=== PATIENT | female | born 1995 | race Hispanic/Latino ===

== ENCOUNTER 2019-12-26 19:37 | Emergency (ER) | payer SELFPAY ==
[~2019-12-26] VITALS: Ht 157.5 cm; Wt 140.2 kg
--- OUTSIDE RECORDS SUMMARY | 2019-12-26 19:42 | XMS REPORT ---
[facility] Address Unknown Phone Unavailable Care Team Providers Care I&C Technician Name Role Phone Unavailable Unavailable Payers Payer Name Policy Type Policy Number Effective Date Expiration Date Problems This patient has no known problems. Allergies, Adverse Reactions, Alerts Allergy Name Allergy Type Status Severity Reaction(s) Onset Date Inactive Date Treating Clinician Comments No Known Allergies DA Active U 2019-12-13 00:00:00 No Known Allergies DA Active U 2019-01-12 00:00:00 No Known Allergies DA Active U 2018-11-03 00:00:00 No Known Allergies DA Active U 2018-10-12 00:00:00 No Known Allergies DA Active U 2018-10-06 00:00:00 No Known Allergies DA Active U 2012-07-04 00:00:00 Medications This patient has no known medications. Results Test Description Test Time Test Comments Text Results Atomic Results Result Comments - ABDOMEN LTD 2019-06-12 16:00:00 Name: WILLIAMS SPENCE [facility] : 1995 Age/S: 23 / F [address] [facility] Unit #: [id number] Loc: [place] [address] Phys: Rc Ware MD Acct: [id number] Dis Date: Status: REG ER PHONE #: [phone] Exam Date: 06/12/2019 1544 FAX #: [phone] Reason: RUQ pain EXAMS: CPT CODE: [id number] US ABDOMEN LTD 61917 HISTORY: Right upper quadrant pain. COMPARISON: None available. The liver is mildly hyperechogenic suggesting mild fibrofatty infiltration which slightly limited evaluation for intrahepatic mass however no discrete lesions. The liver is enlarged at 22 cm in length. No intra or extrahepatic biliary ductal dilatation. CBD is normal at 3.3 mm. Main portal vein is patent with hepatopedal flow and normal spectral waveform. Gallbladder demonstrating multiple shadowing stones. No pericholecystic fluid or wall thickening. No ascites. Right kidney is free from hydronephrosis and calyceal stones. Normal echogenicity and texture. Right kidney measured 12.7 cm in length. Visualized portions of the IVC, aorta and pancreas are normal however imaged incompletely. IMPRESSION: Contracted gallbladder with multiple gallstones without pericholecystic fluid along the anterior wall. No wall thickening. Fibrofatty infiltrated liver with hepatomegaly at 22 cm in length. at 1600 Reported and signed by: Chintan Luciano M.D. CC: Rc Ware MD Technologist: Alyssa Montanez RDMS Trnsdb Date/Time: 06/12/2019 (1600) [email or web address] Orig Print D/T: S: 06/12/2019 (2188) Probe: PAGE 1 Signed Report COMPREHENSIVE METABOLIC PANEL 2019-06-12 15:20:00 SODIUM (test code=NA) 139 mmol/L 135-148 POTASSIUM (test code=K) 3.3 mmol/L 3.5-5.1 CHLORIDE (test code=CL) 103 mmol/L 101-109 CARBON DIOXIDE (test code=CO2) 26.4 mmol/L 21-32 ANION GAP (test code=GAP) 13 mmol/L 10-20 GLUCOSE (test code=GLU) 82 mg/dL 74-106 BLOOD UREA NITROGEN (test code=BUN) 8 mg/dL 3-21 CREATININE (test code=CREAT) 0.49 mg/dL 0.55-1.3 BUN/CREATININE RATIO (test code=BUN/CREA) 16.3 10-20 TOTAL PROTEIN (test code=PROT) 7.6 g/dL 6.5-8.4 ALBUMIN (test code=ALB) 3.8 g/dL 3.4-4.8 GLOBULIN (test code=GLOB) 3.8 G/DL 1-10 ALBUMIN/GLOBULIN RATIO (test code=A/G) 1.0 RATIO 0.75-1.50 CALCIUM (test code=CA) 8.7 mg/dL 8.4-10.2 BILIRUBIN TOTAL (test code=BILT) 0.30 mg/dL 0.0-1.0 SGOT/AST (test code=AST) 8 U/L 6-32 SGPT/ALT (test code=ALT) 16 U/L 12-78 Note: Change in REFERENCE RANGE due to new reagent method. ALKALINE PHOSPHATASE TOTAL (test code=ALKP) 68 U/L 38-126 HEPATIC FUNCTION [id number] 15:20:00* Test Item Value Reference Range Comments BILIRUBIN DIRECT (test code=BILD) 0.10 mg/dL 0.0-0.30 [id number] 15:20:00* Test Item Value Reference Range Comments LIPASE (test code=LIP) 124 U/L 128-270 COMPREHENSIVE METABOLIC [id number] 15:14:00* Test Item Value Reference Range Comments SODIUM (test code=NA) 139 mmol/L 135-148 POTASSIUM (test code=K) 3.3 mmol/L 3.5-5.1 CHLORIDE (test code=CL) 103 mmol/L 101-109 CARBON DIOXIDE (test code=CO2) 26.4 mmol/L 21-32 ANION GAP (test code=GAP) 13 mmol/L 10-20 GLUCOSE (test code=GLU) 82 mg/dL 74-106 BLOOD UREA NITROGEN (test code=BUN) 8 mg/dL 3-21 CREATININE (test code=CREAT) 0.49 mg/dL 0.55-1.3 BUN/CREATININE RATIO (test code=BUN/CREA) 16.3 10-20 TOTAL PROTEIN (test code=PROT) gram/dL 6.4-8.2 ALBUMIN (test code=ALB) g/dL 3.4-5.0 GLOBULIN (test code=GLOB) g/dL 2.7-4.2 ALBUMIN/GLOBULIN RATIO (test code=A/G) 0.75-1.50 CALCIUM (test code=CA) 8.7 mg/dL 8.4-10.2 BILIRUBIN TOTAL (test code=BILT) mg/dL 0.2-1.2 SGOT/AST (test code=AST) IUnit/L 15-37 SGPT/ALT (test code=ALT) U/L 10-69 ALKALINE PHOSPHATASE TOTAL (test code=ALKP) IUnit/L 45-117 HEPATIC FUNCTION [id number] 15:14:00* Test Item Value Reference Range Comments BILIRUBIN DIRECT (test code=BILD) mg/dL 0.0-0.20 [id number] 15:14:00* Test Item Value Reference Range Comments LIPASE (test code=LIP) Unit/L 144-286 CBC W/AUTO [id number] 15:09:00* Test Item Value Reference Range Comments WHITE BLOOD CELL (test code=WBC) 8.3 K/mm3 4.5-12.5 RED BLOOD CELL (test code=RBC) 4.06 mill/mm3 3.7-5.2 HEMOGLOBIN (test code=HGB) 10.8 gram/dL 11.5-15.5 HEMATOCRIT (test code=HCT) 34.5 % 36.0-46.0 MEAN CELL VOLUME (test code=MCV) 85.0 fL 80-98 MEAN CELL HGB (test code=MCH) 26.6 picogram 27.0-33.0 MEAN CELL HGB CONCETRATION (test code=MCHC) 31.3 gram/dL 33.0-36.0 RED CELL DISTRIBUTION WIDTH (test code=RDW) 15.2 % 11.6-16.2 RED CELL DISTRIBUTION WIDTH SD (test code=RDW-SD) 47.9 fL 37.0-51.0 PLATELET COUNT (test code=PLT) 319 K/mm3 150-450 MEAN PLATELET VOLUME (test code=MPV) 8.9 fL 6.7-11.0 NEUTROPHIL % (test code=NT%) 66.2 % 39.0-69.0 LYMPHOCYTE % (test code=LY%) 24.9 % 25.0-55.0 MONOCYTE % (test code=MO%) 6.4 % 0.0-10.0 EOSINOPHIL % (test code=EO%) 2.2 % 0.0-5.0 BASOPHIL % (test code=BA%) 0.2 % 0.0-1.0 NEUTROPHIL # (test code=NT#) 5.47 K/mm3 1.8-7.7 LYMPHOCYTE # (test code=LY#) 2.06 K/mm3 1.0-5.0 MONOCYTE # (test code=MO#) 0.53 K/mm3 0-0.8 EOSINOPHIL # (test code=EO#) 0.18 K/mm3 0.0-0.5 BASOPHIL # (test code=BA#) 0.02 K/mm3 0.0-0.2 MANUAL DIFF REQUIRED (test code=MDIFF) NO UR HCG [id number] 15:09:00* Test Item Value Reference Range Comments UR HCG QUAL (test code=HCGQLU) NEGATIVE This HCGQL test is NOT applicable for MALE patients.Check with nurse about probable order error.If Tumor Marker Test needed, nurse should order test "HCGTU"(Test #550.55048) URINALYSIS [id number] 20:50:00* Test Item Value Reference Range Comments UA COLOR (test code=COLU) YELLOW YELLOW UA APPEARANCE (test code=APPU) CLEAR CLEAR UA GLUCOSE DIPSTICK (test code=DGLUU) norm mg/dL NEGATIVE UA BILIRUBIN DIPSTICK (test code=BILU) NEGATIVE mg/dL NEGATIVE UA KETONE DIPSTICK (test code=KETU) neg mg/dL NEGATIVE UA SPECIFIC GRAVITY (test code=SGU) 1.015 1.001-1.035 UA BLOOD DIPSTICK (test code=SANG) neg Abiel/uL NEGATIVE UA PH DIPSTICK (test code=MARCOS) 5.0 5.0-8.0 UA PROTEIN DIPSTICK (test code=PROU) neg mg/dL Neg-15 UA UROBILINIOGEN DIPSTICK (test code=URO) norm mg/dL 0.0-0.2 UA NITRITE DIPSTICK (test code=POPPY) NEGATIVE NEGATIVE UA LEUKOCYTE ESTERASE DIPSTICK (test code=LEUU) 25 Katlin/uL (Trace) uL NEGATIVE UA WBC (test code=WBCU) 0-5 per HPF 0-5 UA RBC (test code=RBCU) NONE SEEN per HPF 0-5 UA EPITHELIAL CELLS (test code=EPIU) Few (2-5/hpf) per HPF Few UA BACTERIA (test code=BACU) FEW per HPF NONE Urine Source? Clean CatchBASIC METABOLIC [id number] 20:23:00* Test Item Value Reference Range Comments SODIUM (test code=NA) 141 mmol/L 136-145 POTASSIUM (test code=K) 3.7 mmol/L 3.5-5.1 CHLORIDE (test code=CL) 105 mmol/L 101-109 CARBON DIOXIDE (test code=CO2) 26.5 mmol/L 21-32 ANION GAP (test code=GAP) 13 mmol/L 10-20 GLUCOSE (test code=GLU) 98 mg/dL 74-106 BLOOD UREA NITROGEN (test code=BUN) 13 mg/dL 3-21 GLOMERULAR FILTRATION RATE (test code=GFR) > 60 mL/min >=60 Estimated GFR by using Modified MDRD formula.Chronic kidney disease is defined as either kidney damageor GFR <60 mL/min/1.73 m2 for >3 months. CREATININE (test code=CREAT) 0.53 mg/dL 0.55-1.3 BUN/CREATININE RATIO (test code=BUN/CREA) 24.5 10-20 CALCIUM (test code=CA) 8.6 mg/dL 8.4-10.2 HEPATIC FUNCTION [id number] 20:23:00* Test Item Value Reference Range Comments TOTAL PROTEIN (test code=PROT) 7.4 g/dL 6.5-8.4 ALBUMIN (test code=ALB) 3.5 g/dL 3.4-4.8 GLOBULIN (test code=GLOB) 3.9 G/DL 1-10 ALBUMIN/GLOBULIN RATIO (test code=A/G) 0.90 RATIO 0.75-1.50 BILIRUBIN TOTAL (test code=BILT) 0.20 mg/dL 0.0-1.0 BILIRUBIN DIRECT (test code=BILD) 0.10 mg/dL 0.0-0.30 SGOT/AST (test code=AST) 15 U/L 6-32 SGPT/ALT (test code=ALT) 35 U/L 12-78 Note: Change in REFERENCE RANGE due to new reagent method. ALKALINE PHOSPHATASE TOTAL (test code=ALKP) 68 U/L 38-126 [id number] 20:23:00* Test Item Value Reference Range Comments LIPASE (test code=LIP) 151 U/L 128-270 HCG SERUM [id number] 20:23:00* Test Item Value Reference Range Comments HCG SERUM QUAL (test code=HCGQL) NEGATIVE BASIC METABOLIC [id number] 20:23:00* Test Item Value Reference Range Comments SODIUM (test code=NA) 141 mmol/L 136-145 POTASSIUM (test code=K) 3.7 mmol/L 3.5-5.1 CHLORIDE (test code=CL) 105 mmol/L 101-109 CARBON DIOXIDE (test code=CO2) 26.5 mmol/L 21-32 ANION GAP (test code=GAP) 13 mmol/L 10-20 GLUCOSE (test code=GLU) 98 mg/dL 74-106 BLOOD UREA NITROGEN (test code=BUN) 13 mg/dL 3-21 GLOMERULAR FILTRATION RATE (test code=GFR) > 60 mL/min >=60 Estimated GFR by using Modified MDRD formula.Chronic kidney disease is defined as either kidney damageor GFR <60 mL/min/1.73 m2 for >3 months. CREATININE (test code=CREAT) 0.53 mg/dL 0.55-1.3 BUN/CREATININE RATIO (test code=BUN/CREA) 24.5 10-20 CALCIUM (test code=CA) 8.6 mg/dL 8.4-10.2 HEPATIC FUNCTION [id number] 20:23:00* Test Item Value Reference Range Comments TOTAL PROTEIN (test code=PROT) 7.4 g/dL 6.5-8.4 ALBUMIN (test code=ALB) 3.5 g/dL 3.4-4.8 GLOBULIN (test code=GLOB) 3.9 G/DL 1-10 ALBUMIN/GLOBULIN RATIO (test code=A/G) 0.90 RATIO 0.75-1.50 BILIRUBIN TOTAL (test code=BILT) 0.20 mg/dL 0.0-1.0 BILIRUBIN DIRECT (test code=BILD) 0.10 mg/dL 0.0-0.30 SGOT/AST (test code=AST) 15 U/L 6-32 SGPT/ALT (test code=ALT) 35 U/L 12-78 Note: Change in REFERENCE RANGE due to new reagent method. ALKALINE PHOSPHATASE TOTAL (test code=ALKP) 68 U/L 38-126 [id number] 20:23:00* Test Item Value Reference Range Comments LIPASE (test code=LIP) 151 U/L 128-270 HCG SERUM [id number] 20:23:00* Test Item Value Reference Range Comments HCG SERUM QUAL (test code=HCGQL) NEGATIVE NEGATIVE This HCGQL test is NOT applicable for MALE patients.Check with nurse about probable order error.If Tumor Marker Test needed, nurse should order test "HCGTU"(Test #550.69491) CBC W/O [id number] 20:13:00* Test Item Value Reference Range Comments WHITE BLOOD CELL (test code=WBC) 8.7 K/mm3 4.5-12.5 RED BLOOD CELL (test code=RBC) 4.05 mill/mm3 3.7-5.2 HEMOGLOBIN (test code=HGB) 10.9 gram/dL 11.5-15.5 HEMATOCRIT (test code=HCT) 34.4 % 36.0-46.0 MEAN CELL VOLUME (test code=MCV) 84.9 fL 80-98 MEAN CELL HGB (test code=MCH) 26.9 picogram 27.0-33.0 MEAN CELL HGB CONCETRATION (test code=MCHC) 31.7 gram/dL 33.0-36.0 RED CELL DISTRIBUTION WIDTH (test code=RDW) 14.9 % 11.6-16.2 RED CELL DISTRIBUTION WIDTH SD (test code=RDW-SD) 47.0 fL 37.0-51.0 PLATELET COUNT (test code=PLT) 322 K/mm3 150-450 MEAN PLATELET VOLUME (test code=MPV) 8.6 fL 6.7-11.0 - US ABDOMEN [id number] 19:25:00 Name: WILLIAMS SPENCE [facility]: 1995 Age/S: 23 / F [address] [facility] Unit #: [id number] Loc: [place] [address] Phys: Janie Larios DO Acct: [id number] Dis Date: Status: REG ER PHONE #: [phone] Exam Date: 05/27/2019 1917 FAX #: [phone] Reason: Abdominal Pain EXAMS: CPT CODE: [id number] US ABDOMEN LTD 81290 REASON FOR EXAM: Abdominal Pain EXAM ORDER DATE: 05/27/2019 6:24 PM Attending Ernesto: Janie Larios DO PROCEDURE: - US ABDOMEN LTD FINDINGS: The liver is unremarkable. There is no evidence of focal mass identified. The pancreas is within normal limits. The right kidney measures 13.1 x 4.2 cm. There is no evidence of hydronephrosis. There is no evidence of nephrolithiasis. There is no evidence of renal mass. The gallbladder is contracted and full of gallstones. The common bile duct measures 0.4 cm. There is no evidence of ascites. The aorta and IVC are within normal limits. The portal vein is patent with hepatopetal flow IMPRESSION: Contracted gallbladder full of gallstones at 192 Reported and signed by: Daren Angel M.D. CC: Janie Larios DO Technologist: Alyssa Montanez RDMS Trnscb Date/Time: 05/27/2019 (1924) Padmini Orig Print D/T: S: 05/27/2019 (1927) Probe: PAGE 1 Signed Report COMPREHENSIVE METABOLIC [id number] 09:00:00* Test Item Value Reference Range Comments SODIUM (test code=NA) 141 mmol/L 135-148 POTASSIUM (test code=K) 3.7 mmol/L 3.5-5.1 CHLORIDE (test code=CL) 103 mmol/L 101-109 CARBON DIOXIDE (test code=CO2) 27.4 mmol/L 21-32 ANION GAP (test code=GAP) 14 mmol/L 10-20 GLUCOSE (test code=GLU) 111 mg/dL 74-106 BLOOD UREA NITROGEN (test code=BUN) 9 mg/dL 3-21 CREATININE (test code=CREAT) 0.61 mg/dL 0.55-1.3 BUN/CREATININE RATIO (test code=BUN/CREA) 14.8 10-20 TOTAL PROTEIN (test code=PROT) 7.9 g/dL 6.5-8.4 ALBUMIN (test code=ALB) 3.8 g/dL 3.4-4.8 GLOBULIN (test code=GLOB) 4.1 G/DL 1-10 ALBUMIN/GLOBULIN RATIO (test code=A/G) 0.9 RATIO 0.75-1.50 CALCIUM (test code=CA) 9.1 mg/dL 8.4-10.2 BILIRUBIN TOTAL (test code=BILT) 0.30 mg/dL 0.0-1.0 SGOT/AST (test code=AST) 8 U/L 6-32 SGPT/ALT (test code=ALT) 19 U/L 12-78 Note: Change in REFERENCE RANGE due to new reagent method. ALKALINE PHOSPHATASE TOTAL (test code=ALKP) 77 U/L 38-126 [id number] 09:00:00* Test Item Value Reference Range Comments LIPASE (test code=LIP) 136 U/L 128-270 COMPREHENSIVE METABOLIC [id number] 08:54:00* Test Item Value Reference Range Comments SODIUM (test code=NA) 141 mmol/L 135-148 POTASSIUM (test code=K) 3.7 mmol/L 3.5-5.1 CHLORIDE (test code=CL) 103 mmol/L 101-109 CARBON DIOXIDE (test code=CO2) 27.4 mmol/L 21-32 ANION GAP (test code=GAP) 14 mmol/L 10-20 GLUCOSE (test code=GLU) 111 mg/dL 74-106 BLOOD UREA NITROGEN (test code=BUN) 9 mg/dL 3-21 CREATININE (test code=CREAT) 0.61 mg/dL 0.55-1.3 BUN/CREATININE RATIO (test code=BUN/CREA) 14.8 10-20 TOTAL PROTEIN (test code=PROT) gram/dL 6.4-8.2 ALBUMIN (test code=ALB) g/dL 3.4-5.0 GLOBULIN (test code=GLOB) g/dL 2.7-4.2 ALBUMIN/GLOBULIN RATIO (test code=A/G) 0.75-1.50 CALCIUM (test code=CA) 9.1 mg/dL 8.4-10.2 BILIRUBIN TOTAL (test code=BILT) mg/dL 0.2-1.2 SGOT/AST (test code=AST) IUnit/L 15-37 SGPT/ALT (test code=ALT) U/L 10-69 ALKALINE PHOSPHATASE TOTAL (test code=ALKP) IUnit/L 45-117 [id number] 08:54:00* Test Item Value Reference Range Comments LIPASE (test code=LIP) Unit/L 144-286 CBC W/AUTO [id number] 08:26:00* Test Item Value Reference Range Comments WHITE BLOOD CELL (test code=WBC) 6.5 K/mm3 4.5-12.5 RED BLOOD CELL (test code=RBC) 4.31 mill/mm3 3.7-5.2 HEMOGLOBIN (test code=HGB) 11.4 gram/dL 11.5-15.5 HEMATOCRIT (test code=HCT) 36.4 % 36.0-46.0 MEAN CELL VOLUME (test code=MCV) 84.5 fL 80-98 MEAN CELL HGB (test code=MCH) 26.5 picogram 27.0-33.0 MEAN CELL HGB CONCETRATION (test code=MCHC) 31.3 gram/dL 33.0-36.0 RED CELL DISTRIBUTION WIDTH (test code=RDW) 15.3 % 11.6-16.2 RED CELL DISTRIBUTION WIDTH SD (test code=RDW-SD) 48.0 fL 37.0-51.0 PLATELET COUNT (test code=PLT) 308 K/mm3 150-450 MEAN PLATELET VOLUME (test code=MPV) 8.4 fL 6.7-11.0 NEUTROPHIL % (test code=NT%) 76.1 % 39.0-69.0 LYMPHOCYTE % (test code=LY%) 18.2 % 25.0-55.0 MONOCYTE % (test code=MO%) 5.0 % 0.0-10.0 EOSINOPHIL % (test code=EO%) 0.5 % 0.0-5.0 BASOPHIL % (test code=BA%) 0.2 % 0.0-1.0 NEUTROPHIL # (test code=NT#) 4.98 K/mm3 1.8-7.7 LYMPHOCYTE # (test code=LY#) 1.19 K/mm3 1.0-5.0 MONOCYTE # (test code=MO#) 0.33 K/mm3 0-0.8 EOSINOPHIL # (test code=EO#) 0.03 K/mm3 0.0-0.5 BASOPHIL # (test code=BA#) 0.01 K/mm3 0.0-0.2 MANUAL DIFF REQUIRED (test code=MDIFF) NO URINALYSIS [id number] 07:58:00* Test Item Value Reference Range Comments UA COLOR (test code=COLU) STRAW YELLOW UA APPEARANCE (test code=APPU) SLIGHT HAZY CLEAR UA GLUCOSE DIPSTICK (test code=DGLUU) norm mg/dL NEGATIVE UA BILIRUBIN DIPSTICK (test code=BILU) NEGATIVE mg/dL NEGATIVE UA KETONE DIPSTICK (test code=KETU) neg mg/dL NEGATIVE UA SPECIFIC GRAVITY (test code=SGU) 1.010 1.001-1.035 UA BLOOD DIPSTICK (test code=SANG) neg Abiel/uL NEGATIVE UA PH DIPSTICK (test code=MARCOS) 8.0 5.0-8.0 UA PROTEIN DIPSTICK (test code=PROU) neg mg/dL Neg-15 UA UROBILINIOGEN DIPSTICK (test code=URO) norm mg/dL 0.0-0.2 UA NITRITE DIPSTICK (test code=POPPY) NEGATIVE NEGATIVE UA LEUKOCYTE ESTERASE DIPSTICK (test code=LEUU) 25 Katlin/uL (Trace) uL NEGATIVE UA WBC (test code=WBCU) 0-5 per HPF 0-5 UA RBC (test code=RBCU) 0-3 per HPF 0-5 UA EPITHELIAL CELLS (test code=EPIU) Few (2-5/hpf) per HPF Few UA BACTERIA (test code=BACU) FEW per HPF NONE Urine Source? Clean CatchUR HCG [id number] 07:58:00* Test Item Value Reference Range Comments UR HCG QUAL (test code=HCGQLU) NEGATIVE This HCGQL test is NOT applicable for MALE patients.Check with nurse about probable order error.If Tumor Marker Test needed, nurse should order test "HCGTU"(Test #550.77613) Urine Source? Clean CatchURINALYSIS [id number] 07:44:00* Test Item Value Reference Range Comments UA COLOR (test code=COLU) STRAW YELLOW UA APPEARANCE (test code=APPU) SLIGHT HAZY CLEAR UA GLUCOSE DIPSTICK (test code=DGLUU) norm mg/dL NEGATIVE UA BILIRUBIN DIPSTICK (test code=BILU) NEGATIVE mg/dL NEGATIVE UA KETONE DIPSTICK (test code=KETU) neg mg/dL NEGATIVE UA SPECIFIC GRAVITY (test code=SGU) 1.010 1.001-1.035 UA BLOOD DIPSTICK (test code=SANG) neg Abiel/uL NEGATIVE UA PH DIPSTICK (test code=MARCOS) 8.0 5.0-8.0 UA PROTEIN DIPSTICK (test code=PROU) neg mg/dL Neg-15 UA UROBILINIOGEN DIPSTICK (test code=URO) norm mg/dL 0.0-0.2 UA NITRITE DIPSTICK (test code=POPPY) NEGATIVE NEGATIVE UA LEUKOCYTE ESTERASE DIPSTICK (test code=LEUU) 25 Katlin/uL (Trace) uL NEGATIVE UA WBC (test code=WBCU) per HPF 0-5 UA RBC (test code=RBCU) per HPF 0-5 UA EPITHELIAL CELLS (test code=EPIU) per HPF Few UA BACTERIA (test code=BACU) per HPF NONE Urine Source? Clean CatchUR HCG [id number] 07:44:00* Test Item Value Reference Range Comments UR HCG QUAL (test code=HCGQLU) Urine Source? Clean Catch- US ABDOMEN [id number] 23:05:00 Name: SPENCEMESFINPRASANNA [facility] : 1995 Age/S: 23 / F [address] [facility] Unit #: [id number] Loc: [place] [address] Phys: Victorino Lemus MD Acct: [id number] Di s Date: Status: REG ER PHONE #: [phone] Exam Date: 05/12/20192245 FAX #: Reason: RUQ PAIN EXAMS: CPT CODE: [id number] US ABDOMEN LTD 91851 REASON FOR EXAM: RUQ PAIN EXAM ORDER DATE: 05/12/2019 10:06 PM Attendi aura العلي.: Lianne Lemus MD PROCEDURE: - US ABDOMEN LTD Technique: Grayscale images of the Pancreas, liver, right kidney, comm on bile duct, and gallbladder. Grayscale and color Doppler images of the aorta, IVC, and portal vein. Comparison: CT of the chest which inc ludes the upper abdomen January 19, 2019 FINDINGS: Aorta and IVC: Patent and grossly normal in caliber. Liver: Size: 22.0 cm craniocaudally Parenchyma and contour: Geographic areas of increased echogenicity Cysts and/or masses: None. Intrahe patic bile ducts: No intrahepatic biliary ductal dilation Common b ile duct: 0.4 cm in diameter. No echogenic filling defects in visualized duct. Gallbladder: Evaluation is limited due to contracted state o f the gallbladder Stones/sludge: Intraluminal echogenicities with po sterior acoustic shadowing likely representing stones and/or sludge Wall: 3.0 mm in thickness. No discontinuity. No polyps. No pericholecys tic fluid. No hyperemia. Sonographic Meyers's sign: Negative Portal vein: Portal vein caliber is within normal limits. Portal vein is patent with hepatopetal flow. Pancreas: Incompletely visualized. However the visualized portions are grossly within normal limits. Right kidney: PAGE 1 Signed Report (CONTINUED) Name: WILLIAMS SPENCE [facility] : 1995 Age/S: 23 / F [address] [facility] Unit #: [id number] Loc: [place] [address] Phys: Lianne Lemus MD Acct: [id number] Dis Date: Status: REG ER PHONE #: [phone] Exam Date: 05/12/20196 FAX #: [phone] Reason: RUQ PAIN EXAMS: CPT CODE: [id number] US ABDOMEN LTD 00244 <Continued > size: 12.8 x 4.6 x 7.8 cm. stones: none cysts/masses: none hydronephrosis: none There is no evidence of ascites. IMPRESSION: Limited evaluation of the gallbladder due to contraction. There are intraluminal echogenicities with posterior s hadowing likely representing stones and/or sludge Hepatomegaly w ith geographic areas of steatosis. at 2305 Reported and signed by: Gerard Mauricio MD CC: Technologist: Himanshu Disla RDMS Trnscb Date/Time: 05/12/2019 (2304) [email or web address] Orig Print D/T: S: 05/12/2019 ([id number]) Probe: PAGE 2 Signed Report BASIC METABOLIC PANEL 2019-05-12 22:32:00* Test Item Value Reference Range Comments SODIUM (test code=NA) 141 mmol/L 136-145 POTASSIUM (test code=K) 3.9 mmol/L 3.5-5.1 CHLORIDE (test code=CL) 103 mmol/L 101-109 CARBON DIOXIDE (test code=CO2) 28.1 mmol/L 21-32 ANION GAP (test code=GAP) 14 mmol/L 10-20 GLUCOSE (test code=GLU) 99 mg/dL 74-106 BLOOD UREA NITROGEN (test code=BUN) 17 mg/dL 3-21 GLOMERULAR FILTRATION RATE (test code=GFR) > 60 mL/min >=60 Estimated GFR by using Modified MDRD formula.Chronic kidney disease is defined as either kidney damageor GFR <60 mL/min/1.73 m2 for >3 months. CREATININE (test code=CREAT) 0.73 mg/dL 0.55-1.3 BUN/CREATININE RATIO (test code=BUN/CREA) 23.3 10-20 CALCIUM (test code=CA) 8.5 mg/dL 8.4-10.2 HEPATIC FUNCTION [id number] 22:32:00* Test Item Value Reference Range Comments TOTAL PROTEIN (test code=PROT) 7.5 g/dL 6.5-8.4 ALBUMIN (test code=ALB) 3.5 g/dL 3.4-4.8 GLOBULIN (test code=GLOB) 4.0 G/DL 1-10 ALBUMIN/GLOBULIN RATIO (test code=A/G) 0.88 RATIO 0.75-1.50 BILIRUBIN TOTAL (test code=BILT) 0.20 mg/dL 0.0-1.0 BILIRUBIN DIRECT (test code=BILD) 0.10 mg/dL 0.0-0.30 SGOT/AST (test code=AST) 8 U/L 6-32 SGPT/ALT (test code=ALT) 19 U/L 12-78 Note: Change in REFERENCE RANGE due to new reagent method. ALKALINE PHOSPHATASE TOTAL (test code=ALKP) 68 U/L 38-126 [id number] 22:32:00* Test Item Value Reference Range Comments LIPASE (test code=LIP) 186 U/L 128-270 HCG SERUM [id number] 22:32:00* Test Item Value Reference Range Comments HCG SERUM QUAL (test code=HCGQL) NEGATIVE NEGATIVE This HCGQL test is NOT applicable for MALE patients.Check with nurse about probable order error.If Tumor Marker Test needed, nurse should order test "HCGTU"(Test #[id number]) URINALYSIS [id number] 22:29:00* Test Item Value Reference Range Comments UA COLOR (test code=COLU) YELLOW YELLOW UA APPEARANCE (test code=APPU) CLOUDY CLEAR UA GLUCOSE DIPSTICK (test code=DGLUU) norm mg/dL NEGATIVE UA BILIRUBIN DIPSTICK (test code=BILU) NEGATIVE mg/dL NEGATIVE UA KETONE DIPSTICK (test code=KETU) neg mg/dL NEGATIVE UA SPECIFIC GRAVITY (test code=SGU) 1.025 1.001-1.035 UA BLOOD DIPSTICK (test code=SANG) 250 (4+) Abiel/uL NEGATIVE UA PH DIPSTICK (test code=MARCOS) 5.0 5.0-8.0 UA PROTEIN DIPSTICK (test code=PROU) 30 (1+) mg/dL Neg-15 UA UROBILINIOGEN DIPSTICK (test code=URO) 1 mg/dL 0.0-0.2 UA NITRITE DIPSTICK (test code=POPPY) NEGATIVE NEGATIVE UA LEUKOCYTE ESTERASE DIPSTICK (test code=LEUU) 100 [place]/uL (1+) uL NEGATIVE UA WBC (test code=WBCU) 0-5 per HPF 0-5 UA RBC (test code=RBCU) 50-100 per HPF 0-5 UA EPITHELIAL CELLS (test code=EPIU) Moderate (5-10/hpf) per HPF Few UA BACTERIA (test code=BACU) MODERATE per HPF NONE Urine Source? Clean CatchDRUGS OF ABUSE SCREEN [id number] 22:29:00* Test Item Value Reference Range Comments URN COCAINE (test code=COCAURN) NEGATIVE NEGATIVE URN CANNABINOIDS (test code=CANNABURN) POSITIVE NEGATIVE URN AMPHETAMINE (test code=AMPHETURN) POSITIVE NEGATIVE URN BARBITURATE (test code=BARBITURN) NEGATIVE NEGATIVE URN BENZODIAZEPINE (test code=BENZOURN) NEGATIVE NEGATIVE URN OPIATES (test code=OPIATURN) NEGATIVE NEGATIVE URN PHENCYCLIDINE (PCP) (test code=PHENCURN) NEGATIVE NEGATIVE Urine Source? Clean CatchBASIC METABOLIC [id number] 22:28:00* Test Item Value Reference Range Comments SODIUM (test code=NA) mmol/L 135-148 POTASSIUM (test code=K) mmol/L 3.5-5.1 CHLORIDE (test code=CL) mmol/L 101-109 CARBON DIOXIDE (test code=CO2) mmol/L 21-32 ANION GAP (test code=GAP) mmol/L 10-20 GLUCOSE (test code=GLU) mg/dL 74-106 BLOOD UREA NITROGEN (test code=BUN) mg/dL 3-21 GLOMERULAR FILTRATION RATE (test code=GFR) mL/min >=60 CREATININE (test code=CREAT) mg/dL 0.55-1.3 BUN/CREATININE RATIO (test code=BUN/CREA) 10-20 CALCIUM (test code=CA) mg/dL 8.4-10.2 HEPATIC FUNCTION [id number] 22:28:00* Test Item Value Reference Range Comments TOTAL PROTEIN (test code=PROT) gram/dL 6.4-8.2 ALBUMIN (test code=ALB) g/dL 3.4-5.0 GLOBULIN (test code=GLOB) g/dL 2.7-4.2 ALBUMIN/GLOBULIN RATIO (test code=A/G) 0.75-1.50 BILIRUBIN TOTAL (test code=BILT) mg/dL 0.2-1.2 BILIRUBIN DIRECT (test code=BILD) mg/dL 0.0-0.20 SGOT/AST (test code=AST) IUnit/L 15-37 SGPT/ALT (test code=ALT) U/L 10-69 ALKALINE PHOSPHATASE TOTAL (test code=ALKP) IUnit/L 45-117 [id number] 22:28:00* Test Item Value Reference Range Comments LIPASE (test code=LIP) Unit/L 144-286 HCG SERUM [id number] 22:28:00* Test Item Value Reference Range Comments HCG SERUM QUAL (test code=HCGQL) NEGATIVE NEGATIVE This HCGQL test is NOT applicable for MALE patients.Check with nurse about probable order error.If Tumor Marker Test needed, nurse should order test "HCGTU"(Test #550.85872) BASIC METABOLIC [id number] 22:28:00* Test Item Value Reference Range Comments SODIUM (test code=NA) 141 mmol/L 136-145 POTASSIUM (test code=K) 3.9 mmol/L 3.5-5.1 CHLORIDE (test code=CL) 103 mmol/L 101-109 CARBON DIOXIDE (test code=CO2) 28.1 mmol/L 21-32 ANION GAP (test code=GAP) 14 mmol/L 10-20 GLUCOSE (test code=GLU) 99 mg/dL 74-106 BLOOD UREA NITROGEN (test code=BUN) 17 mg/dL 3-21 GLOMERULAR FILTRATION RATE (test code=GFR) > 60 mL/min >=60 Estimated GFR by using Modified MDRD formula.Chronic kidney disease is defined as either kidney damageor GFR <60 mL/min/1.73 m2 for >3 months. CREATININE (test code=CREAT) 0.73 mg/dL 0.55-1.3 BUN/CREATININE RATIO (test code=BUN/CREA) 23.3 10-20 CALCIUM (test code=CA) 8.5 mg/dL 8.4-10.2 HEPATIC FUNCTION [id number] 22:28:00* Test Item Value Reference Range Comments TOTAL PROTEIN (test code=PROT) gram/dL 6.4-8.2 ALBUMIN (test code=ALB) g/dL 3.4-5.0 GLOBULIN (test code=GLOB) g/dL 2.7-4.2 ALBUMIN/GLOBULIN RATIO (test code=A/G) 0.75-1.50 BILIRUBIN TOTAL (test code=BILT) mg/dL 0.2-1.2 BILIRUBIN DIRECT (test code=BILD) mg/dL 0.0-0.20 SGOT/AST (test code=AST) IUnit/L 15-37 SGPT/ALT (test code=ALT) U/L 10-69 ALKALINE PHOSPHATASE TOTAL (test code=ALKP) IUnit/L 45-117 [id number] 22:28:00* Test Item Value Reference Range Comments LIPASE (test code=LIP) Unit/L 144-286 HCG SERUM [id number] 22:28:00* Test Item Value Reference Range Comments HCG SERUM QUAL (test code=HCGQL) NEGATIVE NEGATIVE This HCGQL test is NOT applicable for MALE patients.Check with nurse about probable order error.If Tumor Marker Test needed, nurse should order test "HCGTU"(Test #550.81948) URINALYSIS [id number] 22:27:00* Test Item Value Reference Range Comments UA COLOR (test code=COLU) YELLOW YELLOW UA APPEARANCE (test code=APPU) CLOUDY CLEAR UA GLUCOSE DIPSTICK (test code=DGLUU) norm mg/dL NEGATIVE UA BILIRUBIN DIPSTICK (test code=BILU) NEGATIVE mg/dL NEGATIVE UA KETONE DIPSTICK (test code=KETU) neg mg/dL NEGATIVE UA SPECIFIC GRAVITY (test code=SGU) 1.025 1.001-1.035 UA BLOOD DIPSTICK (test code=SANG) 250 (4+) Abiel/uL NEGATIVE UA PH DIPSTICK (test code=MARCOS) 5.0 5.0-8.0 UA PROTEIN DIPSTICK (test code=PROU) 30 (1+) mg/dL Neg-15 UA UROBILINIOGEN DIPSTICK (test code=URO) 1 mg/dL 0.0-0.2 UA NITRITE DIPSTICK (test code=POPPY) NEGATIVE NEGATIVE UA LEUKOCYTE ESTERASE DIPSTICK (test code=LEUU) 100 [place]/uL (1+) uL NEGATIVE UA WBC (test code=WBCU) 0-5 per HPF 0-5 UA RBC (test code=RBCU) 50-100 per HPF 0-5 UA EPITHELIAL CELLS (test code=EPIU) Moderate (5-10/hpf) per HPF Few UA BACTERIA (test code=BACU) MODERATE per HPF NONE Urine Source? Clean CatchDRUGS OF ABUSE SCREEN [id number] 22:27:00* Test Item Value Reference Range Comments URN COCAINE (test code=COCAURN) NEGATIVE URN CANNABINOIDS (test code=CANNABURN) NEGATIVE URN AMPHETAMINE (test code=AMPHETURN) NEGATIVE URN BARBITURATE (test code=BARBITURN) NEGATIVE URN BENZODIAZEPINE (test code=BENZOURN) NEGATIVE URN OPIATES (test code=OPIATURN) NEGATIVE URN PHENCYCLIDINE (PCP) (test code=PHENCURN) NEGATIVE Urine Source? Clean CatchCBC W/O [id number] 22:22:00* Test Item Value Reference Range Comments WHITE BLOOD CELL (test code=WBC) 9.5 K/mm3 4.5-12.5 RED BLOOD CELL (test code=RBC) 4.11 mill/mm3 3.7-5.2 HEMOGLOBIN (test code=HGB) 11.2 gram/dL 11.5-15.5 HEMATOCRIT (test code=HCT) 35.3 % 36.0-46.0 MEAN CELL VOLUME (test code=MCV) 85.9 fL 80-98 MEAN CELL HGB (test code=MCH) 27.3 picogram 27.0-33.0 MEAN CELL HGB CONCETRATION (test code=MCHC) 31.7 gram/dL 33.0-36.0 RED CELL DISTRIBUTION WIDTH (test code=RDW) 15.7 % 11.6-16.2 RED CELL DISTRIBUTION WIDTH SD (test code=RDW-SD) 49.9 fL 37.0-51.0 PLATELET COUNT (test code=PLT) 376 K/mm3 150-450 MEAN PLATELET VOLUME (test code=MPV) 8.5 fL 6.7-11.0 URINALYSIS [id number] 22:21:00* Test Item Value Reference Range Comments UA COLOR (test code=COLU) YELLOW YELLOW UA APPEARANCE (test code=APPU) CLOUDY CLEAR UA GLUCOSE DIPSTICK (test code=DGLUU) norm mg/dL NEGATIVE UA BILIRUBIN DIPSTICK (test code=BILU) NEGATIVE mg/dL NEGATIVE UA KETONE DIPSTICK (test code=KETU) neg mg/dL NEGATIVE UA SPECIFIC GRAVITY (test code=SGU) 1.025 1.001-1.035 UA BLOOD DIPSTICK (test code=SANG) 250 (4+) Abiel/uL NEGATIVE UA PH DIPSTICK (test code=MARCOS) 5.0 5.0-8.0 UA PROTEIN DIPSTICK (test code=PROU) 30 (1+) mg/dL Neg-15 UA UROBILINIOGEN DIPSTICK (test code=URO) 1 mg/dL 0.0-0.2 UA NITRITE DIPSTICK (test code=POPPY) NEGATIVE NEGATIVE UA LEUKOCYTE ESTERASE DIPSTICK (test code=LEUU) 100 [place]/uL (1+) uL NEGATIVE UA WBC (test code=WBCU) per HPF 0-5 UA RBC (test code=RBCU) per HPF 0-5 UA EPITHELIAL CELLS (test code=EPIU) per HPF Few UA BACTERIA (test code=BACU) per HPF NONE Urine Source? Clean CatchDRUGS OF ABUSE SCREEN [id number] 22:21:00* Test Item Value Reference Range Comments URN COCAINE (test code=COCAURN) NEGATIVE URN CANNABINOIDS (test code=CANNABURN) NEGATIVE URN AMPHETAMINE (test code=AMPHETURN) NEGATIVE URN BARBITURATE (test code=BARBITURN) NEGATIVE URN BENZODIAZEPINE (test code=BENZOURN) NEGATIVE URN OPIATES (test code=OPIATURN) NEGATIVE URN PHENCYCLIDINE (PCP) (test code=PHENCURN) NEGATIVE Urine Source? Clean CatchURINALYSIS [id number] 03:22:00* Test Item Value Reference Range Comments UA COLOR (test code=COLU) STRAW YELLOW UA APPEARANCE (test code=APPU) CLEAR CLEAR UA GLUCOSE DIPSTICK (test code=DGLUU) NEGATIVE mg/dL NEGATIVE UA BILIRUBIN DIPSTICK (test code=BILU) NEGATIVE mg/dL NEGATIVE UA KETONE DIPSTICK (test code=KETU) 5 (Trace) mg/dL NEGATIVE UA SPECIFIC GRAVITY (test code=SGU) 1.006 1.001-1.035 UA BLOOD DIPSTICK (test code=SANG) Negative mg/dL NEGATIVE UA PH DIPSTICK (test code=MARCOS) 6.0 5.0-8.0 UA PROTEIN DIPSTICK (test code=PROU) NEGATIVE mg/dL NEGATIVE UA UROBILINIOGEN DIPSTICK (test code=URO) NEGATIVE mg/dL NEGATIVE UA NITRITE DIPSTICK (test code=POPPY) NEGATIVE NEGATIVE UA LEUKOCYTE ESTERASE W REFLEX (test code=LEUUR) TRACE [place]/uL NEGATIVE UA WBC (test code=WBCU) 0-5 per HPF 0-5 UA RBC (test code=RBCU) NONE SEEN #/HPF 0-5 UA EPITHELIAL CELLS (test code=EPIU) None seen per HPF FEW UA BACTERIA (test code=BACU) FEW #/HPF NONE UA MUCUS (test code=MUCU) FEW #/LPF FEW Urine Source? Clean CatchBASIC METABOLIC [id number] 01:49:00* Test Item Value Reference Range Comments SODIUM (test code=NA) 142 mmol/L 136-145 POTASSIUM (test code=K) 4.2 mmol/L 3.5-5.1 CHLORIDE (test code=CL) 112.0 mmol/L 98-107 CARBON DIOXIDE (test code=CO2) 23.0 mmol/L 21-32 ANION GAP (test code=GAP) 11.2 10-20 GLUCOSE (test code=GLU) 85 mg/dL 74-106 BLOOD UREA NITROGEN (test code=BUN) 9 mg/dL 7-18 GLOMERULAR FILTRATION RATE (test code=GFR) > 60 mL/min >=60 Estimated GFR by using Modified MDRD formula.Chronic kidney disease is defined as either kidney damageor GFR <60 mL/min/1.73 m2 for >3 months. CREATININE (test code=CREAT) 0.50 mg/dL 0.55-1.02 Note change in reference range due to change in reagent. BUN/CREATININE RATIO (test code=BUN/CREA) 18.0 10-20 CALCIUM (test code=CA) 9.1 mg/dL 8.5-10.1 HEPATIC FUNCTION [id number] 01:49:00* Test Item Value Reference Range Comments TOTAL PROTEIN (test code=PROT) 7.8 gram/dL 6.4-8.2 ALBUMIN (test code=ALB) 3.8 g/dL 3.4-5.0 GLOBULIN (test code=GLOB) 4.0 gram/dL 2.7-4.2 ALBUMIN/GLOBULIN RATIO (test code=A/G) 1.0 0.75-1.50 BILIRUBIN TOTAL (test code=BILT) 0.30 mg/dL 0.0-1.0 BILIRUBIN DIRECT (test code=BILD) 0.09 mg/dL 0.0-0.20 SGOT/AST (test code=AST) 14 IUnit/L 15-37 SGPT/ALT (test code=ALT) 20 IUnit/L 12-78 ALKALINE PHOSPHATASE TOTAL (test code=ALKP) 59 IUnit/L 45-117 Note change in reference range due to change in reagent. [id number] 01:49:00* Test Item Value Reference Range Comments LIPASE (test code=LIP) 122 U/L 73.0-393.0 HCG SERUM [id number] 01:49:00* Test Item Value Reference Range Comments HCG SERUM QUAL (test code=HCGQL) NEGATIVE NEGATIVE This HCGQL test is NOT applicable for MALE patients.Check with nurse about probable order error.If Tumor Marker Test needed, nurse should order test "HCGTU"(Test #550.52962) BASIC METABOLIC [id number] 01:45:00* Test Item Value Reference Range Comments SODIUM (test code=NA) 142 mmol/L 136-145 POTASSIUM (test code=K) 4.2 mmol/L 3.5-5.1 CHLORIDE (test code=CL) 112.0 mmol/L 98-107 CARBON DIOXIDE (test code=CO2) 23.0 mmol/L 21-32 ANION GAP (test code=GAP) 11.2 10-20 GLUCOSE (test code=GLU) 85 mg/dL 74-106 BLOOD UREA NITROGEN (test code=BUN) 9 mg/dL 7-18 GLOMERULAR FILTRATION RATE (test code=GFR) > 60 mL/min >=60 Estimated GFR by using Modified MDRD formula.Chronic kidney disease is defined as either kidney damageor GFR <60 mL/min/1.73 m2 for >3 months. CREATININE (test code=CREAT) 0.50 mg/dL 0.55-1.02 Note change in reference range due to change in reagent. BUN/CREATININE RATIO (test code=BUN/CREA) 18.0 10-20 CALCIUM (test code=CA) 9.1 mg/dL 8.5-10.1 HEPATIC FUNCTION [id number] 01:45:00* Test Item Value Reference Range Comments TOTAL PROTEIN (test code=PROT) 7.8 gram/dL 6.4-8.2 ALBUMIN (test code=ALB) 3.8 g/dL 3.4-5.0 GLOBULIN (test code=GLOB) 4.0 gram/dL 2.7-4.2 ALBUMIN/GLOBULIN RATIO (test code=A/G) 1.0 0.75-1.50 BILIRUBIN TOTAL (test code=BILT) 0.30 mg/dL 0.0-1.0 BILIRUBIN DIRECT (test code=BILD) 0.09 mg/dL 0.0-0.20 SGOT/AST (test code=AST) 14 IUnit/L 15-37 SGPT/ALT (test code=ALT) 20 IUnit/L 12-78 ALKALINE PHOSPHATASE TOTAL (test code=ALKP) 59 IUnit/L 45-117 Note change in reference range due to change in reagent. [id number] 01:45:00* Test Item Value Reference Range Comments LIPASE (test code=LIP) 122 U/L 73.0-393.0 HCG SERUM [id number] 01:45:00* Test Item Value Reference Range Comments HCG SERUM QUAL (test code=HCGQL) NEGATIVE CBC W/O [id number] 01:43:00* Test Item Value Reference Range Comments WHITE BLOOD CELL (test code=WBC) 6.8 K/mm3 4.5-12.5 RED BLOOD CELL (test code=RBC) 4.16 mill/mm3 3.7-5.2 HEMOGLOBIN (test code=HGB) 11.3 gram/dL 11.5-15.5 HEMATOCRIT (test code=HCT) 36.7 % 36.0-46.0 MEAN CELL VOLUME (test code=MCV) 88.2 fL 80-98 MEAN CELL HGB (test code=MCH) 27.2 picogram 27.0-33.0 MEAN CELL HGB CONCETRATION (test code=MCHC) 30.8 gram/dL 33.0-36.0 RED CELL DISTRIBUTION WIDTH (test code=RDW) 16.5 % 11.6-16.2 PLATELET COUNT (test code=PLT) 280 K/mm3 150-450 MEAN PLATELET VOLUME (test code=MPV) 9.1 fL 6.7-11.0 BASIC METABOLIC [id number] 01:40:00* Test Item Value Reference Range Comments SODIUM (test code=NA) 142 mmol/L 136-145 POTASSIUM (test code=K) 4.2 mmol/L 3.5-5.1 CHLORIDE (test code=CL) 112.0 mmol/L 98-107 CARBON DIOXIDE (test code=CO2) mmol/L 21-32 ANION GAP (test code=GAP) 10-20 GLUCOSE (test code=GLU) mg/dL 74-106 BLOOD UREA NITROGEN (test code=BUN) mg/dL 7-18 GLOMERULAR FILTRATION RATE (test code=GFR) mL/min >=60 CREATININE (test code=CREAT) mg/dL 0.55-1.02 BUN/CREATININE RATIO (test code=BUN/CREA) 10-20 CALCIUM (test code=CA) mg/dL 8.5-10.1 HEPATIC FUNCTION [id number] 01:40:00* Test Item Value Reference Range Comments TOTAL PROTEIN (test code=PROT) gram/dL 6.4-8.2 ALBUMIN (test code=ALB) g/dL 3.4-5.0 GLOBULIN (test code=GLOB) gram/dL 2.7-4.2 ALBUMIN/GLOBULIN RATIO (test code=A/G) 0.75-1.50 BILIRUBIN TOTAL (test code=BILT) mg/dL 0.0-1.0 BILIRUBIN DIRECT (test code=BILD) mg/dL 0.0-0.20 SGOT/AST (test code=AST) IUnit/L 15-37 SGPT/ALT (test code=ALT) IUnit/L 12-78 ALKALINE PHOSPHATASE TOTAL (test code=ALKP) IUnit/L 45-117 [id number] 01:40:00* Test Item Value Reference Range Comments LIPASE (test code=LIP) U/L 73.0-393.0 HCG SERUM [id number] 01:40:00* Test Item Value Reference Range Comments HCG SERUM QUAL (test code=HCGQL) NEGATIVE CBC W/O [id number] 01:35:00* Test Item Value Reference Range Comments WHITE BLOOD CELL (test code=WBC) K/mm3 4.5-12.5 RED BLOOD CELL (test code=RBC) mill/mm3 3.7-5.2 HEMOGLOBIN (test code=HGB) gram/dL 11.5-15.5 HEMATOCRIT (test code=HCT) 36.7 % 36.0-46.0 MEAN CELL VOLUME (test code=MCV) fL 80-98 MEAN CELL HGB (test code=MCH) picogram 27.0-33.0 MEAN CELL HGB CONCETRATION (test code=MCHC) gram/dL 33.0-36.0 RED CELL DISTRIBUTION WIDTH (test code=RDW) % 11.6-16.2 PLATELET COUNT (test code=PLT) K/mm3 150-450 MEAN PLATELET VOLUME (test code=MPV) fL 6.7-11.0 BASIC METABOLIC [id number] 05:44:00* Test Item Value Reference Range Comments SODIUM (test code=NA) 139 mmol/L 136-145 POTASSIUM (test code=K) 3.0 mmol/L 3.5-5.1 CHLORIDE (test code=CL) 106.0 mmol/L 98-107 CARBON DIOXIDE (test code=CO2) 24.0 mmol/L 21-32 ANION GAP (test code=GAP) 12.0 10-20 GLUCOSE (test code=GLU) 88 mg/dL 74-106 BLOOD UREA NITROGEN (test code=BUN) 7 mg/dL 7-18 GLOMERULAR FILTRATION RATE (test code=GFR) > 60 mL/min >=60 Estimated GFR by using Modified MDRD formula.Chronic kidney disease is defined as either kidney damageor GFR <60 mL/min/1.73 m2 for >3 months. CREATININE (test code=CREAT) 0.40 mg/dL 0.55-1.02 Note change in reference range due to change in reagent. BUN/CREATININE RATIO (test code=BUN/CREA) 17.5 10-20 CALCIUM (test code=CA) 8.0 mg/dL 8.5-10.1 CBC W/AUTO [id number] 05:32:00* Test Item Value Reference Range Comments WHITE BLOOD CELL (test code=WBC) 10.7 K/mm3 4.5-12.5 RED BLOOD CELL (test code=RBC) 3.80 mill/mm3 3.7-5.2 HEMOGLOBIN (test code=HGB) 9.7 gram/dL 11.5-15.5 HEMATOCRIT (test code=HCT) 32.1 % 36.0-46.0 MEAN CELL VOLUME (test code=MCV) 84.5 fL 80-98 MEAN CELL HGB (test code=MCH) 25.5 picogram 27.0-33.0 MEAN CELL HGB CONCETRATION (test code=MCHC) 30.2 gram/dL 33.0-36.0 RED CELL DISTRIBUTION WIDTH (test code=RDW) 15.9 % 11.6-16.2 RED CELL DISTRIBUTION WIDTH SD (test code=RDW-SD) 48.9 fL 37.0-51.0 PLATELET COUNT (test code=PLT) 338 K/mm3 150-450 MEAN PLATELET VOLUME (test code=MPV) 9.1 fL 6.7-11.0 NEUTROPHIL % (test code=NT%) 70.4 % 39.0-69.0 IMMATURE GRANULOCYTE % (test code=IG%) 0.7 % 0.0-5.0 LYMPHOCYTE % (test code=LY%) 20.8 % 25.0-55.0 MONOCYTE % (test code=MO%) 7.2 % 0.0-10.0 EOSINOPHIL % (test code=EO%) 0.6 % 0.0-5.0 BASOPHIL % (test code=BA%) 0.3 % 0.0-1.0 NUCLEATED RBC % (test code=NRBC%) 0.0 % 0-0 NEUTROPHIL # (test code=NT#) 7.53 K/mm3 1.8-7.7 IMMATURE GRANULOCYTE # (test code=IG#) 0.08 x10 3/uL 0-0.03 LYMPHOCYTE # (test code=LY#) 2.22 K/mm3 1.0-5.0 MONOCYTE # (test code=MO#) 0.77 K/mm3 0-0.8 EOSINOPHIL # (test code=EO#) 0.06 K/mm3 0.0-0.5 BASOPHIL # (test code=BA#) 0.03 K/mm3 0.0-0.2 NUCLEATED RBC # (test code=NRBC#) 0.00 K/mm3 0.0-0.1 MANUAL DIFF REQUIRED (test code=MDIFF) NO - CT ABDOMEN [id number] 12:53:00 Name: WILLIAMS SPENCE [facility] : 1995 Age/S: 23 / F [address] [facility] Unit #: [id number] Loc: JuanJB [address] Phys: Sydnie Ramirez MD Acct: [id number] Dis Date: Status: ADM IN PHONE #: [phone] Exam Date: 01/19/2019 1201 FAX #: [phone] Reason: perforation EXAMS: CPT CODE: [id number] CT ABDOMEN W/CONT 40083 HISTORY: PE. COMPARISON: None available. CTA CHEST: 3-D images NOT available. 100 mL of Isovue-370. Automated exposure control. No pulmonary embolism suboptimally opacified aorta is limited for dissection without gross dissection or aneurysm. Well- opacified SVC. Nondiagnostic visualized neck vasculature due to poor opacification. Unremarkable incompletely visualized thyroid glands. Esophageal wall is not thickened. No pathologic adenopathy. Cardiomegaly without pericardial effusion mild tricuspid regurgitation. Subcutaneous tissues and musculature are normal in appearance. No lytic or blastic lesions are noted within the bony skeleton. The lungs are clear of infiltrates or congestion. Trace basilar effusions, greater on the right. Mild mosaic pattern with suggest small airway disease. No bronchiectasis, honeycombing or fibrosis or endobronchial. Dependent changes. IMPRESSION: No pulmonary embolism. Distal branches slightly limited due to poor resolution due to thick cuts. Unremarkable aorta without aneurysm. Slightly limited for dissection due to suboptimal contrast bolus. The lungs are clear small bibasal effusions and dependent changes. No pathologic adenopathy. CT abdomen with contrast: COMPARISON: CT scan from October 12, 2018 and October 23, 2018. The liver is enhancing homogeneously. No discrete mass. Liver is m easuring 26 cm in length and is markedly enlarged. Portal vein is patent . Hepatic artery remains patent. Gallbladder is well-distended and witho ut radiopaque stones. Unremarkable spleen. Accessory spleen. H omogeneous enhancement. Stomach distended incompletely however it is nor mal in appearance. PAGE 1 Signed Report (CONTINUED) Name: WILLIAMS SPENCE [facility] : 1995 Age/S: 23 / F [address] [facility] Unit #: [id number] Loc: [place] [address] Phys: Sydnie Ramirez MD Acct: [id number] Dis Date: Status: ADM IN PHONE #: [phone] Exam Date: 01/19/2019 1201 FAX #: [phone] Reason: perforation EXAMS: CPT CODE: [id number] CT ABDOMEN W/CONT 02207 < Continued> Pancreas is enhancing homogeneously. Bilateral adrenals are within normal limits. Retroperitoneal lymph node measured 3.3 cm posterior to the right adrenal and medial to the upper pole of the right kidney is stable from September 2018 demonstrating 1 1/2 year stability. Well-opacified abdominal vasculature. No bowel obstruction or colitis or diverticulitis or enteritis. Study is limited due to technique and patient's large body habitus. Nonspecific inflammation in the lower pelvis could represent sequela of sigmoid diverticulitis however it is difficult to assess as the pelvis is not included. Additional pelvic CT would be of value for further characterization. Subcutaneous tissues and the musculature are normal in appearance. No lytic or blastic lesions are noted within bony skeleton. Mild sclerosis of the left SI joint is nonspecific finding IMPRESSION: Inflammatory changes in the far distal pelvis likely sequela sigmoid diverticulitis although it is incompletely included as pelvis is not included limiting evaluation. Correlate with CT pelvis for evaluation of diverticulitis of the sigmoid colon. Rest of the colon and small bowel are unremarkable. Appendix is not visible Severe hepatomegaly is unchanged at 26 cm in length. Stable right retroperitoneal lymph node posterior to the right adrenal measuring 3.3 cm ascending 1 1/2 year stability. at 1253 Reported and signed by: Chintan Luciano M.D. CC: Sydnie Ramirez MD; Ricardo Smith MD Technologist:Jewel Hernandez RT(R),(MR),(CT); CTDI: DLP: Trnscb Date/Time: 01/19/2019 (9053) t.[email or web address].[email or web address] Orig Print D/T: S: 01/19/2019 (7474) CTDI: DLP: PAGE 2 Signed Report - CTA [id number] 12:53:00 Name: WILLIAMS SPENCE [facility] : 1995 Age/S: 23 / F [address] [facility] Unit #: [id number] Loc: [facility] [place] [address] Phys: Sydnie Ramirez MD Acct: [id number] Dis Date: Status: ADM IN PHONE #: [phone] Exam Date: 01/19/2019 1201 FAX #: [phone] Reason: r/o PE EXAMS: CPT CODE: [id number] CTA CHEST 32462 HISTORY: PE. COMPARISON: None available. CTA CHEST: 3-D images NOT available. 100 mL of Isovue- 370. Automated exposure control. No pulmonary embolism suboptimally opacified aorta is limited for dissection without gross dissection or aneurysm. Well-opacified SVC. Nondiagnostic visualized neck vasculature due to poor opacification. Unremarkable incompletely visualized thyroid glands. Esophageal wall is not thickened. No pathologic adenopathy. Cardiomegaly without pericardial effusion mild tricuspid regurgitation. Subcutaneous tissues and musculature are normal in appearance. No lytic or blastic lesions are noted within the bony skele ton. The lungs are clear of infiltrates or congestion. Trace basil ar effusions, greater on the right. Mild mosaic pattern with suggest small airway disease. No bronchiectasis, honeycombing or fibrosis or endo bronchial. Dependent changes. IMPRESSION: No p ulmonary embolism. Distal branches slightly limited due to poor resoluti on due to thick cuts. Unremarkable aorta without aneurysm. Slightly limi aleah for dissection due to suboptimal contrast bolus. The lungs are clear small bibasal effusions and dependent changes. No pathologic adenopathy. CT abdomen with contrast: COMPARISON: CT scan from October 12, 2018 and October 23, 2018. The liver is enhancing homogeneously. No discrete mass. Liver is m easuring 26 cm in length and is markedly enlarged. Portal vein is patent . Hepatic artery remains patent. Gallbladder is well-distended and witho ut radiopaque stones. Unremarkable spleen. Accessory spleen. H omogeneous enhancement. Stomach distended incompletely however it is nor mal in appearance. PAGE 1 Signed Report (CONTINUED) Name: [facility] : 1995 Age/S: 23 / F [address] [facility] Unit #: [id number] Loc: [place] [address] Phys: Sydnie Ramirez MD Acct: [id number] Dis Date: Status: ADM IN PHONE #: [phone] Exam Date: 01/19/2019 1201 FAX #: [phone] Reason: r/o PE EXAMS: CPT CODE: [id number] CTA CHEST 77068 < Continued> Pancreas is enhancing homogeneously. Bilateral adrenals are within normal limits. Retroperitoneal lymph node measured 3.3 cm posterior to the right adrenal and medial to the upper pole of the right kidney is stable from September 2018 demonstrating 1 1/2 year stability. Well-opacified abdominal vasculature. No bowel obstruction or colitis or diverticulitis or enteritis. Study is limited due to technique and patient's large body habitus. Nonspecific inflammation in the lower pelvis could represent sequela of sigmoid diverticulitis however it is difficult to assess as the pelvis is not included. Additional pelvic CT would be of value for further characterization. Subcutaneous tissues and the musculature are normal in appearance. No lytic or blastic lesions are noted within bony skeleton. Mild sclerosis of the left SI joint is nonspecific finding IMPRESSION: Inflammatory changes in the far distal pelvis likely sequela sigmoid diverticulitis although it is incompletely included as pelvis is not included limiting evaluation. Correlate with CT pelvis for evaluation of diverticulitis of the sigmoid colon. Rest of the colon and small bowel are unremarkable. Appendix is not visible Severe hepatomegaly is unchanged at 26 cm in length. Stable right retroperitoneal lymph node posterior to the right adrenal measuring 3.3 cm ascending 1 1/2 year stability. at 1253 Reported and signed by: Chintan Luciano M.D. CC: Sydnie Ramirez MD; Ricardo Smith MD Technologist:Jewel Hernandez RT(R),(MR),(CT); CTDI: DLP: Trnscb Date/Time: 01/19/2019 (6894) [email or web address] Orig Print D/T: S: 01/19/2019 (9128) CTDI: DLP: PAGE 2 Signed Report THYROID STIMULATING [id number] 10:38:00* Test Item Value Reference Range Comments THYROID STIMULATING HORMONE (test code=TSH) 2.280 uIU/mL 0.36-3.74 TSH REFERENCE RANGES: EUTHYROID: 0.35 - 4.3 mIU/mL HYPO : > 5.5 mIU/mL HYPER : < 0.35 mIU/mL SPECIMEN COMMENTS: ADD TO LABSBASIC METABOLIC [id number] 03:23:00* Test Item Value Reference Range Comments SODIUM (test code=NA) 144 mmol/L 136-145 POTASSIUM (test code=K) 3.7 mmol/L 3.5-5.1 CHLORIDE (test code=CL) 112.0 mmol/L 98-107 CARBON DIOXIDE (test code=CO2) 19.0 mmol/L 21-32 ANION GAP (test code=GAP) 16.7 10-20 GLUCOSE (test code=GLU) 79 mg/dL 74-106 BLOOD UREA NITROGEN (test code=BUN) 9 mg/dL 7-18 GLOMERULAR FILTRATION RATE (test code=GFR) > 60 mL/min >=60 Estimated GFR by using Modified MDRD formula.Chronic kidney disease is defined as either kidney damageor GFR <60 mL/min/1.73 m2 for >3 months. CREATININE (test code=CREAT) 0.30 mg/dL 0.55-1.02 Note change in reference range due to change in reagent. BUN/CREATININE RATIO (test code=BUN/CREA) 30.0 10-20 CALCIUM (test code=CA) 8.3 mg/dL 8.5-10.1 BASIC METABOLIC [id number] 03:16:00* Test Item Value Reference Range Comments SODIUM (test code=NA) 144 mmol/L 136-145 POTASSIUM (test code=K) 3.7 mmol/L 3.5-5.1 CHLORIDE (test code=CL) 112.0 mmol/L 98-107 CARBON DIOXIDE (test code=CO2) mmol/L 21-32 ANION GAP (test code=GAP) 10-20 GLUCOSE (test code=GLU) mg/dL 74-106 BLOOD UREA NITROGEN (test code=BUN) mg/dL 7-18 GLOMERULAR FILTRATION RATE (test code=GFR) mL/min >=60 CREATININE (test code=CREAT) mg/dL 0.55-1.02 BUN/CREATININE RATIO (test code=BUN/CREA) 10-20 CALCIUM (test code=CA) 8.3 mg/dL 8.5-10.1 [id number] 03:15:00* Test Item Value Reference Range Comments TROPONIN-I (test code=TROPI) <0.015 ng/mL 0-0.045 [id number] 03:15:00* Test Item Value Reference Range Comments CKMB (test code=CKMBT) < 1.0 ng/mL 0-6.0 CBC W/O [id number] 02:36:00* Test Item Value Reference Range Comments WHITE BLOOD CELL (test code=WBC) 9.3 K/mm3 4.5-12.5 RED BLOOD CELL (test code=RBC) 3.76 mill/mm3 3.7-5.2 HEMOGLOBIN (test code=HGB) 9.7 gram/dL 11.5-15.5 HEMATOCRIT (test code=HCT) 31.5 % 36.0-46.0 MEAN CELL VOLUME (test code=MCV) 83.8 fL 80-98 MEAN CELL HGB (test code=MCH) 25.8 picogram 27.0-33.0 MEAN CELL HGB CONCETRATION (test code=MCHC) 30.8 gram/dL 33.0-36.0 RED CELL DISTRIBUTION WIDTH (test code=RDW) 16.1 % 11.6-16.2 PLATELET COUNT (test code=PLT) 304 K/mm3 150-450 MEAN PLATELET VOLUME (test code=MPV) 9.5 fL 6.7-11.0 COMPREHENSIVE METABOLIC [id number] 07:13:00* Test Item Value Reference Range Comments SODIUM (test code=NA) 142 mmol/L 136-145 POTASSIUM (test code=K) 3.7 mmol/L 3.5-5.1 CHLORIDE (test code=CL) 109.0 mmol/L 98-107 CARBON DIOXIDE (test code=CO2) 23.0 mmol/L 21-32 ANION GAP (test code=GAP) 13.7 10-20 GLUCOSE (test code=GLU) 79 mg/dL 74-106 BLOOD UREA NITROGEN (test code=BUN) 8 mg/dL 7-18 GLOMERULAR FILTRATION RATE (test code=GFR) > 60 mL/min >=60 Estimated GFR by using Modified MDRD formula.Chronic kidney disease is defined as either kidney damageor GFR <60 mL/min/1.73 m2 for >3 months. CREATININE (test code=CREAT) 0.40 mg/dL 0.55-1.02 Note change in reference range due to change in reagent. BUN/CREATININE RATIO (test code=BUN/CREA) 20.0 10-20 TOTAL PROTEIN (test code=PROT) 6.9 gram/dL 6.4-8.2 ALBUMIN (test code=ALB) 2.8 g/dL 3.4-5.0 GLOBULIN (test code=GLOB) 4.1 gram/dL 2.7-4.2 ALBUMIN/GLOBULIN RATIO (test code=A/G) 0.7 0.75-1.50 CALCIUM (test code=CA) 8.8 mg/dL 8.5-10.1 BILIRUBIN TOTAL (test code=BILT) 0.20 mg/dL 0.0-1.0 SGOT/AST (test code=AST) 13 IUnit/L 15-37 SGPT/ALT (test code=ALT) 14 IUnit/L 12-78 ALKALINE PHOSPHATASE TOTAL (test code=ALKP) 67 IUnit/L 45-117 Note change in reference range due to change in reagent. CBC W/O [id number] 06:55:00* Test Item Value Reference Range Comments WHITE BLOOD CELL (test code=WBC) 9.1 K/mm3 4.5-12.5 RED BLOOD CELL (test code=RBC) 3.99 mill/mm3 3.7-5.2 HEMOGLOBIN (test code=HGB) 10.0 gram/dL 11.5-15.5 HEMATOCRIT (test code=HCT) 34.5 % 36.0-46.0 MEAN CELL VOLUME (test code=MCV) 86.5 fL 80-98 MEAN CELL HGB (test code=MCH) 25.1 picogram 27.0-33.0 MEAN CELL HGB CONCETRATION (test code=MCHC) 29.0 gram/dL 33.0-36.0 RED CELL DISTRIBUTION WIDTH (test code=RDW) 15.9 % 11.6-16.2 PLATELET COUNT (test code=PLT) 339 K/mm3 150-450 MEAN PLATELET VOLUME (test code=MPV) 9.0 fL 6.7-11.0 BASIC METABOLIC [id number] 06:57:00* Test Item Value Reference Range Comments SODIUM (test code=NA) 141 mmol/L 136-145 POTASSIUM (test code=K) 3.6 mmol/L 3.5-5.1 CHLORIDE (test code=CL) 105.0 mmol/L 98-107 CARBON DIOXIDE (test code=CO2) 24.0 mmol/L 21-32 ANION GAP (test code=GAP) 15.6 10-20 GLUCOSE (test code=GLU) 82 mg/dL 74-106 BLOOD UREA NITROGEN (test code=BUN) 4 mg/dL 7-18 GLOMERULAR FILTRATION RATE (test code=GFR) > 60 mL/min >=60 Estimated GFR by using Modified MDRD formula.Chronic kidney disease is defined as either kidney damageor GFR <60 mL/min/1.73 m2 for >3 months. CREATININE (test code=CREAT) 0.40 mg/dL 0.55-1.02 Note change in reference range due to change in reagent. BUN/CREATININE RATIO (test code=BUN/CREA) 10.0 10-20 CALCIUM (test code=CA) 8.5 mg/dL 8.5-10.1 CBC W/O [id number] 05:57:00* Test Item Value Reference Range Comments WHITE BLOOD CELL (test code=WBC) 8.5 K/mm3 4.5-12.5 RED BLOOD CELL (test code=RBC) 3.80 mill/mm3 3.7-5.2 HEMOGLOBIN (test code=HGB) 9.9 gram/dL 11.5-15.5 HEMATOCRIT (test code=HCT) 32.1 % 36.0-46.0 MEAN CELL VOLUME (test code=MCV) 84.5 fL 80-98 MEAN CELL HGB (test code=MCH) 26.1 picogram 27.0-33.0 MEAN CELL HGB CONCETRATION (test code=MCHC) 30.8 gram/dL 33.0-36.0 RED CELL DISTRIBUTION WIDTH (test code=RDW) 15.8 % 11.6-16.2 PLATELET COUNT (test code=PLT) 335 K/mm3 150-450 MEAN PLATELET VOLUME (test code=MPV) 8.7 fL 6.7-11.0 BASIC METABOLIC [id number] 10:42:00* Test Item Value Reference Range Comments SODIUM (test code=NA) 140 mmol/L 136-145 POTASSIUM (test code=K) 3.2 mmol/L 3.5-5.1 CHLORIDE (test code=CL) 107.0 mmol/L 98-107 CARBON DIOXIDE (test code=CO2) 27.0 mmol/L 21-32 ANION GAP (test code=GAP) 9.2 10-20 GLUCOSE (test code=GLU) 76 mg/dL 74-106 BLOOD UREA NITROGEN (test code=BUN) 5 mg/dL 7-18 GLOMERULAR FILTRATION RATE (test code=GFR) > 60 mL/min >=60 Estimated GFR by using Modified MDRD formula.Chronic kidney disease is defined as either kidney damageor GFR <60 mL/min/1.73 m2 for >3 months. CREATININE (test code=CREAT) 0.30 mg/dL 0.55-1.02 Note change in reference range due to change in reagent. BUN/CREATININE RATIO (test code=BUN/CREA) 16.7 10-20 CALCIUM (test code=CA) 8.6 mg/dL 8.5-10.1 BASIC METABOLIC [id number] 10:39:00* Test Item Value Reference Range Comments SODIUM (test code=NA) 140 mmol/L 136-145 POTASSIUM (test code=K) 3.2 mmol/L 3.5-5.1 CHLORIDE (test code=CL) 107.0 mmol/L 98-107 CARBON DIOXIDE (test code=CO2) mmol/L 21-32 ANION GAP (test code=GAP) 10-20 GLUCOSE (test code=GLU) mg/dL 74-106 BLOOD UREA NITROGEN (test code=BUN) mg/dL 7-18 GLOMERULAR FILTRATION RATE (test code=GFR) mL/min >=60 CREATININE (test code=CREAT) mg/dL 0.55-1.02 BUN/CREATININE RATIO (test code=BUN/CREA) 10-20 CALCIUM (test code=CA) mg/dL 8.5-10.1 CBC W/O [id number] 10:09:00* Test Item Value Reference Range Comments WHITE BLOOD CELL (test code=WBC) 7.5 K/mm3 4.5-12.5 RED BLOOD CELL (test code=RBC) 3.72 mill/mm3 3.7-5.2 HEMOGLOBIN (test code=HGB) 9.6 gram/dL 11.5-15.5 HEMATOCRIT (test code=HCT) 32.4 % 36.0-46.0 MEAN CELL VOLUME (test code=MCV) 87.1 fL 80-98 MEAN CELL HGB (test code=MCH) 25.8 picogram 27.0-33.0 MEAN CELL HGB CONCETRATION (test code=MCHC) 29.6 gram/dL 33.0-36.0 RED CELL DISTRIBUTION WIDTH (test code=RDW) 16.2 % 11.6-16.2 PLATELET COUNT (test code=PLT) 328 K/mm3 150-450 MEAN PLATELET VOLUME (test code=MPV) 8.8 fL 6.7-11.0 BASIC METABOLIC [id number] 07:41:00* Test Item Value Reference Range Comments SODIUM (test code=NA) 141 mmol/L 136-145 POTASSIUM (test code=K) 3.5 mmol/L 3.5-5.1 CHLORIDE (test code=CL) 105.0 mmol/L 98-107 CARBON DIOXIDE (test code=CO2) 27.0 mmol/L 21-32 ANION GAP (test code=GAP) 12.5 10-20 GLUCOSE (test code=GLU) 77 mg/dL 74-106 BLOOD UREA NITROGEN (test code=BUN) 5 mg/dL 7-18 GLOMERULAR FILTRATION RATE (test code=GFR) > 60 mL/min >=60 Estimated GFR by using Modified MDRD formula.Chronic kidney disease is defined as either kidney damageor GFR <60 mL/min/1.73 m2 for >3 months. CREATININE (test code=CREAT) 0.30 mg/dL 0.55-1.02 Note change in reference range due to change in reagent. BUN/CREATININE RATIO (test code=BUN/CREA) 16.7 10-20 CALCIUM (test code=CA) 8.3 mg/dL 8.5-10.1 BASIC METABOLIC [id number] 07:36:00* Test Item Value Reference Range Comments SODIUM (test code=NA) 141 mmol/L 136-145 POTASSIUM (test code=K) 3.5 mmol/L 3.5-5.1 CHLORIDE (test code=CL) 105.0 mmol/L 98-107 CARBON DIOXIDE (test code=CO2) mmol/L 21-32 ANION GAP (test code=GAP) 10-20 GLUCOSE (test code=GLU) mg/dL 74-106 BLOOD UREA NITROGEN (test code=BUN) mg/dL 7-18 GLOMERULAR FILTRATION RATE (test code=GFR) mL/min >=60 CREATININE (test code=CREAT) mg/dL 0.55-1.02 BUN/CREATININE RATIO (test code=BUN/CREA) 10-20 CALCIUM (test code=CA) mg/dL 8.5-10.1 CBC W/O [id number] 07:25:00* Test Item Value Reference Range Comments WHITE BLOOD CELL (test code=WBC) 10.0 K/mm3 4.5-12.5 RED BLOOD CELL (test code=RBC) 3.77 mill/mm3 3.7-5.2 HEMOGLOBIN (test code=HGB) 9.7 gram/dL 11.5-15.5 HEMATOCRIT (test code=HCT) 32.9 % 36.0-46.0 MEAN CELL VOLUME (test code=MCV) 87.3 fL 80-98 MEAN CELL HGB (test code=MCH) 25.7 picogram 27.0-33.0 MEAN CELL HGB CONCETRATION (test code=MCHC) 29.5 gram/dL 33.0-36.0 RED CELL DISTRIBUTION WIDTH (test code=RDW) 16.6 % 11.6-16.2 PLATELET COUNT (test code=PLT) 313 K/mm3 150-450 MEAN PLATELET VOLUME (test code=MPV) 9.1 fL 6.7-11.0 URINALYSIS [id number] 15:31:00* Test Item Value Reference Range Comments UA COLOR (test code=COLU) YELLOW YELLOW UA APPEARANCE (test code=APPU) CLEAR CLEAR UA GLUCOSE DIPSTICK (test code=DGLUU) NEGATIVE mg/dL NEGATIVE UA BILIRUBIN DIPSTICK (test code=BILU) NEGATIVE mg/dL NEGATIVE UA KETONE DIPSTICK (test code=KETU) 80 mg/dL NEGATIVE UA SPECIFIC GRAVITY (test code=SGU) >1.060 1.001-1.035 UA BLOOD DIPSTICK (test code=SANG) Negative NEGATIVE UA PH DIPSTICK (test code=MARCOS) 6.0 5.0-8.0 UA PROTEIN DIPSTICK (test code=PROU) NEGATIVE mg/dL NEGATIVE UA UROBILINIOGEN DIPSTICK (test code=URO) NEGATIVE mg/dL NEGATIVE UA NITRITE DIPSTICK (test code=POPPY) NEGATIVE NEGATIVE UA LEUKOCYTE ESTERASE W REFLEX (test code=LEUUR) NEGATIVE NEGATIVE UA WBC (test code=WBCU) 0-5 per HPF 0-5 UA RBC (test code=RBCU) 0-2 #/HPF 0-5 UA EPITHELIAL CELLS (test code=EPIU) FEW per HPF FEW UA MUCUS (test code=MUCU) FEW #/LPF FEW SPECIMEN COMMENTS: 1ST SPECIMEN GROSSLY CONTAMINATEDUrine Source? Catheter URINALYSIS [id number] 15:17:00* Test Item Value Reference Range Comments UA COLOR (test code=COLU) YELLOW YELLOW UA APPEARANCE (test code=APPU) CLEAR CLEAR UA GLUCOSE DIPSTICK (test code=DGLUU) NEGATIVE mg/dL NEGATIVE UA BILIRUBIN DIPSTICK (test code=BILU) NEGATIVE mg/dL NEGATIVE UA KETONE DIPSTICK (test code=KETU) 80 mg/dL NEGATIVE UA SPECIFIC GRAVITY (test code=SGU) >1.060 1.001-1.035 UA BLOOD DIPSTICK (test code=SANG) Negative NEGATIVE UA PH DIPSTICK (test code=MARCOS) 6.0 5.0-8.0 UA PROTEIN DIPSTICK (test code=PROU) NEGATIVE mg/dL NEGATIVE UA UROBILINIOGEN DIPSTICK (test code=URO) NEGATIVE mg/dL NEGATIVE UA NITRITE DIPSTICK (test code=POPPY) NEGATIVE NEGATIVE UA LEUKOCYTE ESTERASE W REFLEX (test code=LEUUR) NEGATIVE NEGATIVE UA WBC (test code=WBCU) per HPF 0-5 SPECIMEN COMMENTS: 1ST SPECIMEN GROSSLY CONTAMINATEDUrine Source? Catheter- CT ABD PELVIS [id number] 10:56:00 Name: WILLIAMS SPENCE [facility]: 1995 Age/S: 23 / F [address] Unit #: [id number] Loc: [place] [address] Phys: Daniel Allred [employer]ET[employer] COORDINATOR Acct: [id number] Dis Date: Status: REG ER PHONE #: [phone] Exam Date: 01/14/2019 1021 FAX #: [phone] Reason: WORSENING ABD PAIN EXAMS: CPT CODE: [id number] CT ABD PELVIS W/CONT 62055 HISTORY: Worsening abdominal pain. COMPARISON: CT scan from January 12, 2019. CT of abdomen and pelvis with IV contrast: 100 mL of Isovue-370. Automated exposure control. CT ABDOMEN: Basal dependent changes bilaterally especially on the right. The hepatic parenchyma is stranding homogeneous enhancement with marked enlargement at 26.3 cm in length. Small perihepatic fluid. No discrete mass is noted. Gallbladder is without radiopaque stones. The spleen is unremarkable. Accessory spleens. Stomach distended incompletely but it is normal in appearance. Pancreas is enhancing homogeneously. Adrenals are normal. Kidneys are free from hydroureteronephrosis. Homogeneous enhancement. Bilateral excretion is noted. No pathologic adenopathy. Well-opacified abdominal and pelvic vasculature. No bowel obstruction in the upper abdomen. CT PELVIS: Severe sigmoid diverticulitis with extensive inflammation extending deep into the mesentery extending towards the right of the midline. No drainable abscess collection is noted. Small area of contained perforation noted superiorly the midline. Severe diverticulosis. No drainable abscess. Small bowel loops are seconda rily inflamed. Unremarkable urinary bladder. Patient is post hyste rectomy. No pelvic pathologic adenopathy. Subcutaneous tissu es and the musculature are normal in appearance. No lytic or blastic lesio ns are noted within the bony skeleton. Sclerosis of the left SI joint is n onspecific. DJD. IMPRESSION: PAGE 1 Signed Report (CONTINUED) Name: WILLIAMS SPENCE [facility] : 1995 Age/S: 23 / F [address] Unit #: [id number] Loc: JB [place] [address] Phys: Daniel Allred GLOBAL MARKETING COORDINATOR Acct: [id number] Dis Date: Stat us: REG ER PHONE #: [phone] Exam Date: 01/14/2019 1021 FAX #: [phone] Reason: WORSENING ABD PAIN EXAMS: CPT CODE: [id number] CT ABD PELVIS W/CONT 00736 <Continued> Worsening severe diverticulitis of the sigmoid colon with small area of contained perforation in the midline superiorly. No drainable abscess collection. These findings were discussed with Dr. Snider at 10:54 AM. FOR INTERNAL CODING PURPOSES ONLY RESULT CODE: CVR at 1056 Reported and signed by: Chintan Luciano M.D. CC: Pierre Sutton MD; Daniel Allred NP Technologist:RT Robert(R),CT CTDI: DLP: Trnscb Date/Time: 01/14/2019 (6713) t.[email or web address] Orig Print D/T: S: 01/14/2019 (2984) CTDI: DLP: PAGE 2 Signed Report BASIC METABOLIC [id number] 09:19:00* Test Item Value Reference Range Comments SODIUM (test code=NA) 137 mmol/L 136-145 POTASSIUM (test code=K) 3.6 mmol/L 3.5-5.1 CHLORIDE (test code=CL) 104.0 mmol/L 98-107 CARBON DIOXIDE (test code=CO2) 27.0 mmol/L 21-32 ANION GAP (test code=GAP) 9.6 10-20 GLUCOSE (test code=GLU) 93 mg/dL 74-106 BLOOD UREA NITROGEN (test code=BUN) 7 mg/dL 7-18 GLOMERULAR FILTRATION RATE (test code=GFR) > 60 mL/min >=60 Estimated GFR by using Modified MDRD formula.Chronic kidney disease is defined as either kidney damageor GFR <60 mL/min/1.73 m2 for >3 months. CREATININE (test code=CREAT) 0.50 mg/dL 0.55-1.02 Note change in reference range due to change in reagent. BUN/CREATININE RATIO (test code=BUN/CREA) 14.0 10-20 CALCIUM (test code=CA) 8.7 mg/dL 8.5-10.1 SPECIMEN COMMENTS: 1ST SPECIMEN GROSSLY CONTAMINATEDHEPATIC FUNCTION PANEL 2019-01-14 09:19:00* Test Item Value Reference Range Comments TOTAL PROTEIN (test code=PROT) 7.3 gram/dL 6.4-8.2 ALBUMIN (test code=ALB) 3.0 g/dL 3.4-5.0 GLOBULIN (test code=GLOB) 4.3 gram/dL 2.7-4.2 ALBUMIN/GLOBULIN RATIO (test code=A/G) 0.7 0.75-1.50 BILIRUBIN TOTAL (test code=BILT) 0.60 mg/dL 0.0-1.0 BILIRUBIN DIRECT (test code=BILD) 0.22 mg/dL 0.0-0.20 SGOT/AST (test code=AST) 9 IUnit/L 15-37 SGPT/ALT (test code=ALT) 17 IUnit/L 12-78 ALKALINE PHOSPHATASE TOTAL (test code=ALKP) 77 IUnit/L 45-117 Note change in reference range due to change in reagent. SPECIMEN COMMENTS: 1ST SPECIMEN GROSSLY [id number] 09:19:00* Test Item Value Reference Range Comments LIPASE (test code=LIP) 50 U/L 73.0-393.0 SPECIMEN COMMENTS: 1ST SPECIMEN GROSSLY CONTAMINATEDBASIC METABOLIC PANEL 2019-01-14 08:51:00* Test Item Value Reference Range Comments SODIUM (test code=NA) 137 mmol/L 136-145 POTASSIUM (test code=K) 3.6 mmol/L 3.5-5.1 CHLORIDE (test code=CL) 104.0 mmol/L 98-107 CARBON DIOXIDE (test code=CO2) mmol/L 21-32 ANION GAP (test code=GAP) 10-20 GLUCOSE (test code=GLU) mg/dL 74-106 BLOOD UREA NITROGEN (test code=BUN) mg/dL 7-18 GLOMERULAR FILTRATION RATE (test code=GFR) mL/min >=60 CREATININE (test code=CREAT) mg/dL 0.55-1.02 BUN/CREATININE RATIO (test code=BUN/CREA) 10-20 CALCIUM (test code=CA) mg/dL 8.5-10.1 SPECIMEN COMMENTS: 1ST SPECIMEN GROSSLY CONTAMINATEDHEPATIC FUNCTION PANEL 2019-01-14 08:51:00* Test Item Value Reference Range Comments TOTAL PROTEIN (test code=PROT) gram/dL 6.4-8.2 ALBUMIN (test code=ALB) g/dL 3.4-5.0 GLOBULIN (test code=GLOB) gram/dL 2.7-4.2 ALBUMIN/GLOBULIN RATIO (test code=A/G) 0.75-1.50 BILIRUBIN TOTAL (test code=BILT) mg/dL 0.0-1.0 BILIRUBIN DIRECT (test code=BILD) mg/dL 0.0-0.20 SGOT/AST (test code=AST) IUnit/L 15-37 SGPT/ALT (test code=ALT) IUnit/L 12-78 ALKALINE PHOSPHATASE TOTAL (test code=ALKP) IUnit/L 45-117 SPECIMEN COMMENTS: 1ST SPECIMEN GROSSLY [id number] 08:51:00* Test Item Value Reference Range Comments LIPASE (test code=LIP) U/L 73.0-393.0 SPECIMEN COMMENTS: 1ST SPECIMEN GROSSLY CONTAMINATEDCBC W/O [id number] 08:43:00* Test Item Value Reference Range Comments WHITE BLOOD CELL (test code=WBC) 13.4 K/mm3 4.5-12.5 RED BLOOD CELL (test code=RBC) 4.20 mill/mm3 3.7-5.2 HEMOGLOBIN (test code=HGB) 10.9 gram/dL 11.5-15.5 HEMATOCRIT (test code=HCT) 36.2 % 36.0-46.0 MEAN CELL VOLUME (test code=MCV) 86.2 fL 80-98 MEAN CELL HGB (test code=MCH) 26.0 picogram 27.0-33.0 MEAN CELL HGB CONCETRATION (test code=MCHC) 30.1 gram/dL 33.0-36.0 RED CELL DISTRIBUTION WIDTH (test code=RDW) 16.7 % 11.6-16.2 PLATELET COUNT (test code=PLT) 357 K/mm3 150-450 MEAN PLATELET VOLUME (test code=MPV) 9.1 fL 6.7-11.0 SPECIMEN COMMENTS: 1ST SPECIMEN GROSSLY CONTAMINATEDCBC W/O [id number] 08:39:00* Test Item Value Reference Range Comments WHITE BLOOD CELL (test code=WBC) K/mm3 4.5-12.5 RED BLOOD CELL (test code=RBC) mill/mm3 3.7-5.2 HEMOGLOBIN (test code=HGB) gram/dL 11.5-15.5 HEMATOCRIT (test code=HCT) 36.2 % 36.0-46.0 MEAN CELL VOLUME (test code=MCV) fL 80-98 MEAN CELL HGB (test code=MCH) picogram 27.0-33.0 MEAN CELL HGB CONCETRATION (test code=MCHC) gram/dL 33.0-36.0 RED CELL DISTRIBUTION WIDTH (test code=RDW) % 11.6-16.2 PLATELET COUNT (test code=PLT) K/mm3 150-450 MEAN PLATELET VOLUME (test code=MPV) fL 6.7-11.0 SPECIMEN COMMENTS: 1ST SPECIMEN GROSSLY CONTAMINATEDURINALYSIS COMPLETE 2019-01-14 07:13:00* Test Item Value Reference Range Comments UA COLOR (test code=COLU) CINDY YELLOW UA APPEARANCE (test code=APPU) SLIGHTLY CLOUDY CLEAR UA GLUCOSE DIPSTICK (test code=DGLUU) NEGATIVE mg/dL NEGATIVE UA BILIRUBIN DIPSTICK (test code=BILU) NEGATIVE mg/dL NEGATIVE UA KETONE DIPSTICK (test code=KETU) 80 mg/dL NEGATIVE UA SPECIFIC GRAVITY (test code=SGU) 1.027 1.001-1.035 UA BLOOD DIPSTICK (test code=SANG) Negative NEGATIVE UA PH DIPSTICK (test code=MARCOS) 6.0 5.0-8.0 UA PROTEIN DIPSTICK (test code=PROU) 30 (1+) mg/dL NEGATIVE UA UROBILINIOGEN DIPSTICK (test code=URO) 0.0-0.2 (NORMAL) mg/dL 0.0-0.2 UA NITRITE DIPSTICK (test code=POPPY) NEGATIVE NEGATIVE UA LEUKOCYTE ESTERASE W REFLEX (test code=LEUUR) TRACE NEGATIVE UA WBC (test code=WBCU) 6-10 #/HPF 0-5 UA RBC (test code=RBCU) 0-2 #/HPF 0-5 UA EPITHELIAL CELLS (test code=EPIU) MANY per HPF FEW UA BACTERIA (test code=BACU) FEW #/HPF NONE UA MUCUS (test code=MUCU) MANY #/LPF FEW Urine Source? Clean CatchUR HCG [id number] 07:13:00* Test Item Value Reference Range Comments UR HCG QUAL (test code=HCGQLU) NEGATIVE This HCGQL test is NOT applicable for MALE patients.Check with nurse about probable order error.If Tumor Marker Test needed, nurse should order test "HCGTU"(Test #[id number]) Urine Source? Clean CatchURINALYSIS [id number] 06:54:00* Test Item Value Reference Range Comments UA COLOR (test code=COLU) YELLOW UA APPEARANCE (test code=APPU) CLEAR UA BILIRUBIN DIPSTICK (test code=BILU) NEGATIVE UA SPECIFIC GRAVITY (test code=SGU) 1.001-1.035 UA PH DIPSTICK (test code=MARCOS) 5.0-8.0 UA UROBILINIOGEN DIPSTICK (test code=URO) mg/dL 0.0-0.2 UA NITRITE DIPSTICK (test code=POPPY) NEGATIVE UA LEUKOCYTE ESTERASE W REFLEX (test code=LEUUR) NEGATIVE UA WBC (test code=WBCU) per HPF 0-5 Urine Source? Clean CatchUR HCG [id number] 06:54:00* Test Item Value Reference Range Comments UR HCG QUAL (test code=HCGQLU) NEGATIVE This HCGQL test is NOT applicable for MALE patients.Check with nurse about probable order error.If Tumor Marker Test needed, nurse should order test "HCGTU"(Test #[id number]) Urine Source? Clean Catch- CT ABD PELVIS [id number] 11:30:00 Name: WILLIAMS SPENCE [facility] : 1995 Age/S: 23 / F [address] [facility] Unit #: [id number] Loc: JB [place] [address] Phys: Milka Rahman NP Acct: [id number] Di s Date: Status: REG ER PHONE #: Exam Date: 01/12/2019 1056 FAX #: Reason: ABD PAIN EXAMS: CPT CODE: [id number] CT ABD PELVIS W/CONT 99467 HISTORY: Abdominal pain. COMPARISON: CT scan from November 03 and November 02, [address] scan from October 12, 2018. CT abdomen and pelvis with IV con trast: 100 mL of Isovue-370. Automated exposure control. CT ABDOMEN: The lung bases are clear. Dependent changes. The liver is enhancing homogeneously. No discrete mass is noted. The vicky er is measuring 26 cm in length and is markedly enlarged. No discrete mass is noted. Gallbladder is without radiopaque stones. Unremarkable spleen. Accessory spleen. The stomach distends incompletely but it is norm al in appearance. Pancreas is enhancing homogeneously with unremar kable adrenals. Kidneys are free from hydroureteronephrosis. No ch anges enhancement. Bilateral excretion. 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 No other pathologic adenopathy. Well-opacified abdomin al and pelvic vasculature is noted. No bowel obstruction or coliti s or diverticulitis or enteritis. CT PELVIS: No chinyere l obstruction. Appendix is normal. Mild diverticulosis. Mild diverticuliti s with mild inflammation. Unremarkable urinary bladder. The uterus is unremarkable. Ovaries are poorly visible. No free fluid or free air or abscess. No pelvic pathologic adenopathy. Subcutaneous tiss ues and musculature are normal in appearance. No lytic or blastic lesions are noted within the bony skeleton. Mild sclerosis of the left SI joint is nonspecific. IMPRESSION: PAGE 1 Signed Report (CONTINUED) Name: WILLIAMS SPENCE [facility] : 1995 Age/S: 23 / F [address] [facility] Unit #: [id number] Loc: JB Martinez [address] Phys: Mayuri Rahman [employer]ETING COORDINATOR Acct: [id number] Dis Date: Status: REG ER PHONE #: [phone] Exam Date: 1056 FAX #: [phone] Reason: ABD PAIN EXAMS: CPT CODE: [id number] CT ABD PELVIS W/CONT 11876 <Continued> Mild sigmoid diverticulitis without free fluid, free air or abscess. Stable right retroperitoneal pathologic adenopathy from 2018 measuring 2.6 cm an the level of the celiac artery. at 1130 Reported and signed by: Chintan Luciano M.D. CC: Corinna Lindo MD; Mayuri Rahman NP Technologist:Jewel Guy RT(R),(MR),(CT); CTDI: DLP: Trnscb Date/Time: 01/12/2019 (1130) [email or web address] Orig Print D/T: S: 01/12/2019 (8440) CTDI: DLP: PAGE 2 Signed Report URINALYSIS [id number] 09:18:00* Test Item Value Reference Range Comments UA COLOR (test code=COLU) YELLOW YELLOW UA APPEARANCE (test code=APPU) CLEAR CLEAR UA GLUCOSE DIPSTICK (test code=DGLUU) NEGATIVE mg/dL NEGATIVE UA BILIRUBIN DIPSTICK (test code=BILU) NEGATIVE mg/dL NEGATIVE UA KETONE DIPSTICK (test code=KETU) Negative mg/dL NEGATIVE UA SPECIFIC GRAVITY (test code=SGU) 1.021 1.001-1.035 UA BLOOD DIPSTICK (test code=SANG) Negative NEGATIVE UA PH DIPSTICK (test code=MARCOS) 5.0 5.0-8.0 UA PROTEIN DIPSTICK (test code=PROU) Negative mg/dL NEGATIVE UA UROBILINIOGEN DIPSTICK (test code=URO) NEGATIVE mg/dL NEGATIVE UA NITRITE DIPSTICK (test code=POPPY) NEGATIVE NEGATIVE UA LEUKOCYTE ESTERASE W REFLEX (test code=LEUUR) NEGATIVE NEGATIVE UA WBC (test code=WBCU) 0-5 #/HPF 0-5 UA RBC (test code=RBCU) 0-2 #/HPF 0-5 UA EPITHELIAL CELLS (test code=EPIU) FEW per HPF FEW UA MUCUS (test code=MUCU) FEW #/LPF FEW Urine Source? Clean CatchBASIC METABOLIC [id number] 09:17:00* Test Item Value Reference Range Comments SODIUM (test code=NA) 140 mmol/L 136-145 POTASSIUM (test code=K) 3.5 mmol/L 3.5-5.1 CHLORIDE (test code=CL) 109.0 mmol/L 98-107 CARBON DIOXIDE (test code=CO2) 25.0 mmol/L 21-32 ANION GAP (test code=GAP) 9.5 10-20 GLUCOSE (test code=GLU) 92 mg/dL 74-106 BLOOD UREA NITROGEN (test code=BUN) 12 mg/dL 7-18 GLOMERULAR FILTRATION RATE (test code=GFR) > 60 mL/min >=60 Estimated GFR by using Modified MDRD formula.Chronic kidney disease is defined as either kidney damageor GFR <60 mL/min/1.73 m2 for >3 months. CREATININE (test code=CREAT) 0.50 mg/dL 0.55-1.02 Note change in reference range due to change in reagent. BUN/CREATININE RATIO (test code=BUN/CREA) 24.0 10-20 CALCIUM (test code=CA) 9.0 mg/dL 8.5-10.1 HEPATIC FUNCTION [id number] 09:17:00* Test Item Value Reference Range Comments TOTAL PROTEIN (test code=PROT) 7.9 gram/dL 6.4-8.2 ALBUMIN (test code=ALB) 3.6 g/dL 3.4-5.0 GLOBULIN (test code=GLOB) 4.3 gram/dL 2.7-4.2 ALBUMIN/GLOBULIN RATIO (test code=A/G) 0.8 0.75-1.50 BILIRUBIN TOTAL (test code=BILT) 0.30 mg/dL 0.0-1.0 BILIRUBIN DIRECT (test code=BILD) 0.10 mg/dL 0.0-0.20 SGOT/AST (test code=AST) 8 IUnit/L 15-37 SGPT/ALT (test code=ALT) 22 IUnit/L 12-78 ALKALINE PHOSPHATASE TOTAL (test code=ALKP) 81 IUnit/L 45-117 Note change in reference range due to change in reagent. [id number] 09:17:00* Test Item Value Reference Range Comments LIPASE (test code=LIP) 114 U/L 73.0-393.0 HCG SERUM [id number] 09:17:00* Test Item Value Reference Range Comments HCG SERUM QUAL (test code=HCGQL) NEGATIVE NEGATIVE This HCGQL test is NOT applicable for MALE patients.Check with nurse about probable order error.If Tumor Marker Test needed, nurse should order test "HCGTU"(Test #550.25602) BASIC METABOLIC [id number] 09:12:00* Test Item Value Reference Range Comments SODIUM (test code=NA) mmol/L 136-145 POTASSIUM (test code=K) mmol/L 3.5-5.1 CHLORIDE (test code=CL) mmol/L 98-107 CARBON DIOXIDE (test code=CO2) mmol/L 21-32 ANION GAP (test code=GAP) 10-20 GLUCOSE (test code=GLU) mg/dL 74-106 BLOOD UREA NITROGEN (test code=BUN) mg/dL 7-18 GLOMERULAR FILTRATION RATE (test code=GFR) mL/min >=60 CREATININE (test code=CREAT) mg/dL 0.55-1.02 BUN/CREATININE RATIO (test code=BUN/CREA) 10-20 CALCIUM (test code=CA) mg/dL 8.5-10.1 HEPATIC FUNCTION [id number] 09:12:00* Test Item Value Reference Range Comments TOTAL PROTEIN (test code=PROT) gram/dL 6.4-8.2 ALBUMIN (test code=ALB) g/dL 3.4-5.0 GLOBULIN (test code=GLOB) gram/dL 2.7-4.2 ALBUMIN/GLOBULIN RATIO (test code=A/G) 0.75-1.50 BILIRUBIN TOTAL (test code=BILT) mg/dL 0.0-1.0 BILIRUBIN DIRECT (test code=BILD) mg/dL 0.0-0.20 SGOT/AST (test code=AST) IUnit/L 15-37 SGPT/ALT (test code=ALT) IUnit/L 12-78 ALKALINE PHOSPHATASE TOTAL (test code=ALKP) IUnit/L 45-117 [id number] 09:12:00* Test Item Value Reference Range Comments LIPASE (test code=LIP) U/L 73.0-393.0 HCG SERUM [id number] 09:12:00* Test Item Value Reference Range Comments HCG SERUM QUAL (test code=HCGQL) NEGATIVE NEGATIVE This HCGQL test is NOT applicable for MALE patients.Check with nurse about probable order error.If Tumor Marker Test needed, nurse should order test "HCGTU"(Test #550.83278) BASIC METABOLIC [id number] 09:12:00* Test Item Value Reference Range Comments SODIUM (test code=NA) 140 mmol/L 136-145 POTASSIUM (test code=K) 3.5 mmol/L 3.5-5.1 CHLORIDE (test code=CL) 109.0 mmol/L 98-107 CARBON DIOXIDE (test code=CO2) mmol/L 21-32 ANION GAP (test code=GAP) 10-20 GLUCOSE (test code=GLU) mg/dL 74-106 BLOOD UREA NITROGEN (test code=BUN) mg/dL 7-18 GLOMERULAR FILTRATION RATE (test code=GFR) mL/min >=60 CREATININE (test code=CREAT) mg/dL 0.55-1.02 BUN/CREATININE RATIO (test code=BUN/CREA) 10-20 CALCIUM (test code=CA) mg/dL 8.5-10.1 HEPATIC FUNCTION [id number] 09:12:00* Test Item Value Reference Range Comments TOTAL PROTEIN (test code=PROT) gram/dL 6.4-8.2 ALBUMIN (test code=ALB) g/dL 3.4-5.0 GLOBULIN (test code=GLOB) gram/dL 2.7-4.2 ALBUMIN/GLOBULIN RATIO (test code=A/G) 0.75-1.50 BILIRUBIN TOTAL (test code=BILT) mg/dL 0.0-1.0 BILIRUBIN DIRECT (test code=BILD) mg/dL 0.0-0.20 SGOT/AST (test code=AST) IUnit/L 15-37 SGPT/ALT (test code=ALT) IUnit/L 12-78 ALKALINE PHOSPHATASE TOTAL (test code=ALKP) IUnit/L 45-117 [id number] 09:12:00* Test Item Value Reference Range Comments LIPASE (test code=LIP) U/L 73.0-393.0 HCG SERUM [id number] 09:12:00* Test Item Value Reference Range Comments HCG SERUM QUAL (test code=HCGQL) NEGATIVE NEGATIVE This HCGQL test is NOT applicable for MALE patients.Check with nurse about probable order error.If Tumor Marker Test needed, nurse should order test "HCGTU"(Test #550.27413) URINALYSIS [id number] 09:05:00* Test Item Value Reference Range Comments UA COLOR (test code=COLU) YELLOW YELLOW UA APPEARANCE (test code=APPU) CLEAR CLEAR UA GLUCOSE DIPSTICK (test code=DGLUU) NEGATIVE mg/dL NEGATIVE UA BILIRUBIN DIPSTICK (test code=BILU) NEGATIVE mg/dL NEGATIVE UA KETONE DIPSTICK (test code=KETU) Negative mg/dL NEGATIVE UA SPECIFIC GRAVITY (test code=SGU) 1.021 1.001-1.035 UA BLOOD DIPSTICK (test code=SANG) Negative NEGATIVE UA PH DIPSTICK (test code=MARCOS) 5.0 5.0-8.0 UA PROTEIN DIPSTICK (test code=PROU) Negative mg/dL NEGATIVE UA UROBILINIOGEN DIPSTICK (test code=URO) NEGATIVE mg/dL NEGATIVE UA NITRITE DIPSTICK (test code=POPPY) NEGATIVE NEGATIVE UA LEUKOCYTE ESTERASE W REFLEX (test code=LEUUR) NEGATIVE NEGATIVE UA WBC (test code=WBCU) per HPF 0-5 Urine Source? Clean CatchCBC W/O [id number] 08:55:00* Test Item Value Reference Range Comments WHITE BLOOD CELL (test code=WBC) K/mm3 4.5-12.5 RED BLOOD CELL (test code=RBC) mill/mm3 3.7-5.2 HEMOGLOBIN (test code=HGB) 12.3 gram/dL 11.5-15.5 HEMATOCRIT (test code=HCT) 40.9 % 36.0-46.0 MEAN CELL VOLUME (test code=MCV) fL 80-98 MEAN CELL HGB (test code=MCH) picogram 27.0-33.0 MEAN CELL HGB CONCETRATION (test code=MCHC) gram/dL 33.0-36.0 RED CELL DISTRIBUTION WIDTH (test code=RDW) % 11.6-16.2 PLATELET COUNT (test code=PLT) K/mm3 150-450 MEAN PLATELET VOLUME (test code=MPV) fL 6.7-11.0 CBC W/O [id number] 08:55:00* Test Item Value Reference Range Comments WHITE BLOOD CELL (test code=WBC) 19.6 K/mm3 4.5-12.5 RED BLOOD CELL (test code=RBC) 4.72 mill/mm3 3.7-5.2 HEMOGLOBIN (test code=HGB) 12.3 gram/dL 11.5-15.5 HEMATOCRIT (test code=HCT) 40.9 % 36.0-46.0 MEAN CELL VOLUME (test code=MCV) 86.7 fL 80-98 MEAN CELL HGB (test code=MCH) 26.1 picogram 27.0-33.0 MEAN CELL HGB CONCETRATION (test code=MCHC) 30.1 gram/dL 33.0-36.0 RED CELL DISTRIBUTION WIDTH (test code=RDW) 16.5 % 11.6-16.2 PLATELET COUNT (test code=PLT) 382 K/mm3 150-450 MEAN PLATELET VOLUME (test code=MPV) 8.7 fL 6.7-11.0
[2019-12-26 22:06] LABS: CLARITY,URINE HAZY (CLEAR); COLOR,URINE YELLOW (YELLOW); KETONES,URINE NEGATIVE (NEGATIVE); LEUKOCYTE ESTERASE ,URINE NEGATIVE (NEGATIVE); NITRITE,URINE NEGATIVE (NEGATIVE); PROTEIN,URINE DIPSTICK 1+ (NEGATIVE); URINE UROBILINOGEN 0.2 mg/dL (0.2 - 1)
[2019-12-26 22:07] LABS: BILIRUBIN,URINE SMALL (NEGATIVE); PREGNANCY TEST, URINE NEGATIVE (NEGATIVE)
[2019-12-26 22:43] LABS: BACTERIA,URINE MANY /HPF; EPITHELIAL CELLS,URINE MANY /LPF
[2019-12-26 23:14] VITALS: BP 141/90
== END 2019-12-26 23:00 | disposition home or self-care (01) ==
LOC: ER 19:37
DX: R10.30 Lower abdominal pain, unspecified (principal); J45.909 Unspecified asthma, uncomplicated; Z86.14 Personal history of Methicillin resistant Staphylococcus aureus infection
CPT/HCPCS: 81001; 81025; 87086; 99283

== ENCOUNTER 2020-12-29 08:05 | Emergency (ER) | payer SELFPAY ==
[~2020-12-29] VITALS: Ht 157.5 cm; Wt 140.2 kg
[2020-12-29] MEDS ORDERED: CEFTRIAXONE SOD 1 GM VIAL IM NR (08:15)
[2020-12-29] MEDS ORDERED: DOXYCYCLINE HY100 MG PO (08:17)
[2020-12-29] MEDS ORDERED: LIDOCAINE HCL 1% 2 ML AMP ONE (08:27)
[2020-12-29] MEDS ORDERED: CEFTRIAXONE SOD 1 GM VIAL ONE (08:28)
== END 2020-12-29 09:07 | disposition home or self-care (01) ==
LOC: ER 08:09
DX: A54.9 Gonococcal infection, unspecified (principal); A74.9 Chlamydial infection, unspecified; J45.909 Unspecified asthma, uncomplicated; Z86.14 Personal history of Methicillin resistant Staphylococcus aureus infection; Z87.19 Personal history of other diseases of the digestive system; F17.210 Nicotine dependence, cigarettes, uncomplicated
CPT/HCPCS: 99283; J0696; J2001

== ENCOUNTER 2021-03-14 09:56 | Emergency (ER) | payer SELFPAY ==
[~2021-03-14] VITALS: Ht 157.5 cm; Wt 158.8 kg
[~2021-03-14 09:56] MED LIST: DOXYCYCLINE HY100 MG PO
[2021-03-14] MEDS ORDERED: SODIUM CHLORIDE 0.9% 1000ML 1,000 ML IV STA (10:11)
[2021-03-14] MEDS ORDERED: PANTOPRAZOLE 40 MG 10ML VIAL IV STA (10:12)
[2021-03-14] MEDS ORDERED: ONDANSETRON HCL INJ 2MG/ML 2ML 2 MG/ML VIAL IV PRN (10:15)
[2021-03-14] MEDS ORDERED: SODIUM CHLORIDE 0.9% 50ML 50 ML ONE (10:36)
[2021-03-14] MEDS ORDERED: IOPAMIDOL 370 MG/ML 200 ML INFUS..BTL INJ ONE (10:37)
[2021-03-14 10:41] LABS: BASOPHILS % 0.2 % (0.0-1.0); EOSINOPHILS # (AUTO) 0.1 (0.0-0.4); EOSINOPHILS % 1.8 % (0.0-6.0); HEMATOCRIT 33.7 % (34.2-44.1); HEMOGLOBIN 10.7 g/dL (12.0-16.0); LYMPHOCYTES # (AUTO) 1.4 (1.0-3.2); LYMPHOCYTES % 20.4 % (18.0-39.1); MEAN CORPUSCULAR HEMOGLOBIN 27.3 pg (28-32); MEAN CORPUSCULAR HGB CONC 31.8 g/dL (31-35); MONOCYTES # (AUTO) 0.5 (0.2-0.8); MONOCYTES % 6.9 % (4.4-11.3); NEUTROPHILS # (AUTO) 4.7 (2.1-6.9); NEUTROPHILS % 70.4 % (38.7-80.0); PLATELET COUNT 331 x10e3/uL (140-360); RED BLOOD COUNT 3.92 x10e6/uL (3.6-5.1); RED CELL DISTRIBUTION WIDTH 14.6 % (11.7-14.4)
[2021-03-14 10:48] LABS: CLARITY,URINE CLOUDY (CLEAR); COLOR,URINE RED (YELLOW); KETONES,URINE NEGATIVE (NEGATIVE); LEUKOCYTE ESTERASE ,URINE NEGATIVE (NEGATIVE); NITRITE,URINE NEGATIVE (NEGATIVE); PROTEIN,URINE DIPSTICK 2+ (NEGATIVE); URINE UROBILINOGEN 0.2 mg/dL (0.2 - 1)
[2021-03-14 10:58] LABS: BACTERIA,URINE FEW /HPF; EPITHELIAL CELLS,URINE RARE /LPF; RBC,URINE >50 /HPF (0-5)
[2021-03-14 11:00] LABS: ALANINE AMINOTRANSFERASE 11 IU/L (0-55); ALBUMIN 3.7 g/dL (3.5-5.0); ALBUMIN/GLOBULIN RATIO 0.9 (0.8-2.0); ALKALINE PHOSPHATASE 53 IU/L (40-150); ANION GAP 10.7 mmol/L (8-16); BLOOD UREA NITROGEN 12 mg/dL (7-26); BUN/CREATININE RATIO 21 (6-25); CALCIUM 9.1 mg/dL (8.4-10.2); CARBON DIOXIDE 24 mmol/L (22-29); CHLORIDE 108 mmol/L (98-107); CREATININE, SERUM 0.58 mg/dL (0.57-1.11); EST GLOMERULAR FILTRATION RATE > 60 ML/MIN (60-); GLUCOSE 100 mg/dL (74-118); LIPASE 24 U/L (8-78); POTASSIUM 3.7 mmol/L (3.5-5.1); SODIUM 139 mmol/L (136-145)
[2021-03-14] MEDS ORDERED: ONDANSETRON ODT4 MG PO (11:56)
== END 2021-03-14 12:01 | disposition home or self-care (01) ==
LOC: ER 10:14
DX: R10.13 Epigastric pain (principal); M54.5 Low back pain; D64.9 Anemia, unspecified; Z87.19 Personal history of other diseases of the digestive system; Z86.14 Personal history of Methicillin resistant Staphylococcus aureus infection
CPT/HCPCS: 36415; 74177; 80053; 81001; 83690; 84702; 85025; 99284; C9113; J2405; J7030; Q9967

== ENCOUNTER 2021-08-24 21:43 | Emergency (ER) | payer SELFPAY ==
[~2021-08-24] VITALS: Ht 157.5 cm; Wt 158.8 kg
[~2021-08-24 21:43] MED LIST changes: +ONDANSETRON ODT4 MG PO
[2021-08-24 22:13] LABS: CLARITY,URINE CLEAR (CLEAR); COLOR,URINE YELLOW (YELLOW); KETONES,URINE NEGATIVE (NEGATIVE); LEUKOCYTE ESTERASE ,URINE NEGATIVE (NEGATIVE); NITRITE,URINE NEGATIVE (NEGATIVE); PROTEIN,URINE DIPSTICK NEGATIVE (NEGATIVE); URINE UROBILINOGEN 0.2 mg/dL (0.2 - 1)
[2021-08-24 22:24] LABS: BACTERIA,URINE MODERATE /HPF; EPITHELIAL CELLS,URINE MODERATE /LPF; WBC,URINE (MAN) 0-5 /HPF (0-5)
[2021-08-24] MEDS ORDERED: METRONIDAZOLE500 MG PO (22:30)
[2021-08-24 22:38] VITALS: BP 132/65
== END 2021-08-24 22:40 | disposition home or self-care (01) ==
LOC: ER 21:53
DX: N39.0 Urinary tract infection, site not specified (principal); D64.9 Anemia, unspecified; Z87.19 Personal history of other diseases of the digestive system; Z86.14 Personal history of Methicillin resistant Staphylococcus aureus infection
CPT/HCPCS: 81001; 81025; 99283

== ENCOUNTER 2022-09-08 16:38 | Emergency (ER) | payer SELFPAY ==
[~2022-09-08] VITALS: Ht 157.5 cm; Wt 154.2 kg
[~2022-09-08 16:38] MED LIST changes: +METRONIDAZOLE500 MG PO
[2022-09-08 17:10] LABS: CLARITY,URINE SL CLOUDY (CLEAR); COLOR,URINE YELLOW (YELLOW); KETONES,URINE NEGATIVE (NEGATIVE); LEUKOCYTE ESTERASE ,URINE NEGATIVE (NEGATIVE); NITRITE,URINE NEGATIVE (NEGATIVE); PROTEIN,URINE DIPSTICK NEGATIVE (NEGATIVE); URINE UROBILINOGEN 0.2 mg/dL (0.2 - 1)
[2022-09-08 17:19] LABS: BACTERIA,URINE FEW /HPF; EPITHELIAL CELLS,URINE MODERATE /LPF
[2022-09-08 17:20] LABS: WBC,URINE (MAN) 0-5 /HPF (0-5)
[2022-09-08] MEDS ORDERED: NAPROSYN500 MG PO (17:36)
[2022-09-08] MEDS ORDERED: CYCLOBENZAPRINE5 MG PO (17:36)
[2022-09-08 17:52] VITALS: BP 131/77
== END 2022-09-08 17:44 | disposition home or self-care (01) ==
LOC: ER 16:42
DX: M54.50 Low back pain, unspecified (principal); D64.9 Anemia, unspecified; Z87.19 Personal history of other diseases of the digestive system; Z86.14 Personal history of Methicillin resistant Staphylococcus aureus infection
CPT/HCPCS: 81001; 81025; 99283

== ENCOUNTER 2023-08-26 10:16 | Emergency (ER) | payer SELFPAY ==
[~2023-08-26] VITALS: Ht 157.5 cm; Wt 158.8 kg
[~2023-08-26 10:16] MED LIST changes: +CYCLOBENZAPRINE5 MG PO; +DICYCLOMINE HCL20 MG PO; +NAPROSYN500 MG PO; +ONDANSETRON ODT4 MG SL; +PANTOPRAZOLE SO40 MG PO
[2023-08-26 10:30] VITALS: O2SAT 99
[2023-08-26] MEDS ORDERED: CEFTRIAXONE 500 MG VIAL IM ONE (11:15)
[2023-08-26] MEDS ORDERED: AZITHROMYCIN 250 MG TAB PO ONE (11:15)
[2023-08-26 11:38] VITALS: BP 149/80; PULSE 70; RESP 18; TEMP 98
== END 2023-08-26 11:40 | disposition home or self-care (01) ==
LOC: ER 11:09
DX: R30.0 Dysuria (principal); Z20.2 Contact with and (suspected) exposure to infections with a predominantly sexual mode of transmission; R10.30 Lower abdominal pain, unspecified
CPT/HCPCS: 99283; J0696

== ENCOUNTER 2024-03-02 12:23 | Emergency (ER) | payer SELFPAY ==
[~2024-03-02] VITALS: Ht 157.5 cm; Wt 158.8 kg
[~2024-03-02 12:23] MED LIST changes: +AZITHROMYCIN250 MG PO; +PAXLOVID 300-11 EAC1 PO
[2024-03-02 12:35] VITALS: O2SAT 99
[2024-03-02 13:58] LABS: CLARITY,URINE SL CLOUDY (CLEAR); COLOR,URINE YELLOW (YELLOW); LEUKOCYTE ESTERASE ,URINE MODERATE (NEGATIVE); NITRITE,URINE POSITIVE (NEGATIVE); PH,URINE 7 (5 - 7)
[2024-03-02 13:59] LABS: BILIRUBIN,URINE NEGATIVE (NEGATIVE); GLUCOSE, URINE NEGATIVE (NEGATIVE); KETONES,URINE NEGATIVE (NEGATIVE); PROTEIN,URINE DIPSTICK NEGATIVE (NEGATIVE); RBC,URINE 0-5 /HPF (0-5); URINE UROBILINOGEN 0.2 mg/dL (0.2 - 1)
[2024-03-02 14:00] LABS: BACTERIA,URINE MODERATE /HPF; EPITHELIAL CELLS,URINE FEW /LPF; PREGNANCY TEST, URINE NEGATIVE (NEGATIVE)
[2024-03-02] MEDS ORDERED: CEFPODOXIME PR200 MG PO (14:08)
== END 2024-03-02 14:50 | disposition home or self-care (01) ==
LOC: ER 12:34
DX: L29.9 Pruritus, unspecified (principal); N39.0 Urinary tract infection, site not specified; J45.909 Unspecified asthma, uncomplicated; D64.9 Anemia, unspecified; Z87.19 Personal history of other diseases of the digestive system
CPT/HCPCS: 81001; 81025; 87086; 99283

== ENCOUNTER 2024-07-20 20:59 | Emergency (ER) | payer SELFPAY ==
[~2024-07-20] VITALS: Ht 157.5 cm; Wt 158.8 kg
[~2024-07-20 20:59] MED LIST changes: +CEFPODOXIME PR200 MG PO
[2024-07-20 22:03] VITALS: PULSE 64; RESP 18; TEMP 97.7
[2024-07-20 23:18] LABS: BASOPHILS % 0.2 % (0.0-1.0); EOSINOPHILS % 0.2 % (0.0-6.0); HEMATOCRIT 42.3 % (34.2-44.1); HEMOGLOBIN 13.8 g/dL (12.0-16.0); LYMPHOCYTES # (AUTO) 0.4 (1.0-3.2); LYMPHOCYTES % 3.5 % (18.0-39.1); MEAN CORPUSCULAR HEMOGLOBIN 29.6 pg (28-32); MEAN CORPUSCULAR HGB CONC 32.6 g/dL (31-35); MEAN CORPUSCULAR VOLUME 90.8 fL (81-99); MONOCYTES # (AUTO) 0.5 (0.2-0.8); MONOCYTES % 4.1 % (4.4-11.3); NEUTROPHILS # (AUTO) 11.2 (2.1-6.9); NEUTROPHILS % 91.7 % (38.7-80.0); PLATELET COUNT 301 x10e3/uL (140-360); RED BLOOD COUNT 4.66 x10e6/uL (3.6-5.1); RED CELL DISTRIBUTION WIDTH 13.5 % (11.7-14.4); WHITE BLOOD COUNT 12.17 x10e3/uL (4.8-10.8)
[2024-07-20] MEDS: SODIUM CHLORIDE 0.9% 1000ML 1,000 ML IV ONE (23:27)
[2024-07-20] MEDS: DICYCLOMINE HCL 20 MG/2 ML VIAL IM ONE (23:27)
[2024-07-20] MEDS: ONDANSETRON HCL INJ 2MG/ML 2ML 2 MG/ML VIAL IV STA (23:27)
[2024-07-20 23:38] LABS: LIPASE 25 U/L (8-78)
[2024-07-20 23:41] LABS: ALBUMIN 4.2 g/dL (3.5-5.0); ALBUMIN/GLOBULIN RATIO 1.2 (0.8-2.0); ANION GAP 17.7 mmol/L (8-16); BILIRUBIN,TOTAL 0.6 mg/dL (0.2-1.2); CALCIUM 8.8 mg/dL (8.4-10.2); CREATININE, SERUM 0.65 mg/dL (0.57-1.11); POTASSIUM 3.7 mmol/L (3.5-5.1); TOTAL PROTEIN 7.8 g/dL (6.5-8.1)
[2024-07-21 02:27] LABS: BILIRUBIN,URINE NEGATIVE (NEGATIVE); CLARITY,URINE HAZY (CLEAR); COLOR,URINE YELLOW (YELLOW); GLUCOSE, URINE NEGATIVE (NEGATIVE); KETONES,URINE 1+ (NEGATIVE); LEUKOCYTE ESTERASE ,URINE NEGATIVE (NEGATIVE); NITRITE,URINE NEGATIVE (NEGATIVE); PH,URINE 6.5 (5 - 7); PROTEIN,URINE DIPSTICK 1+ (NEGATIVE); URINE UROBILINOGEN 1 mg/dL (0.2 - 1)
[2024-07-21 02:29] LABS: BACTERIA,URINE MODERATE /HPF; EPITHELIAL CELLS,URINE MANY /LPF; MUCUS,URINE MODERATE (RARE); RBC,URINE 0-5 /HPF (0-5); WBC,URINE (MAN) 0-5 /HPF (0-5)
[2024-07-21 05:42] VITALS: BP 134/74; PULSE 89; RESP 19; TEMP 98.9; O2SAT 99
== END 2024-07-21 03:00 | disposition home or self-care (01) ==
LOC: ER 22:57
DX: R11.2 Nausea with vomiting, unspecified (principal); R19.7 Diarrhea, unspecified; D64.9 Anemia, unspecified; J45.909 Unspecified asthma, uncomplicated; Z87.19 Personal history of other diseases of the digestive system
CPT/HCPCS: 36415; 80053; 81001; 83690; 84702; 85025; 99284; J0500; J2405; J2470; J7030